=== PATIENT | female | born 1950 | race Caucasian/White ===

== ENCOUNTER → 2016-06-16 | Outpatient (CLI) | payer BC | LOC: MW.MRI 17:21 | PROVIDERS: ATTEND Orthopaedic Surgery | DX: M17.11 Unilateral primary osteoarthritis, right knee (principal) | CPT/HCPCS: 73721-RT ==

== ENCOUNTER → 2016-06-30 | Outpatient (CLI) | payer BC ==
[2016-06-30 12:44] LABS: CHLORIDE,CL 103 mmol/L (98-110); SODIUM,NA 140 mmol/L (136-146)
--- NOTE | 2016-06-30 13:09 | CR ---
EXAMINATION: Two-view chest (PA and Lateral views). HISTORY: Preprocedural examination. FINDINGS: The trachea is midline. The cardiomediastinal silhouette is within normal limits. No pulmonary infil trates, effusions or pneumothorax. Bilateral shoulder hardware noted. Clips are noted within the upper abdomen. IMPRESSION: No acute cardiopulmonary process.
== END ==
LOC: MW.CHIM 11:52
PROVIDERS: ATTEND Internal Medicine
DX: Z01.818 Encounter for other preprocedural examination (principal)
CPT/HCPCS: 36415; 71020; 71020-26; 80048; 81001; 85025; 85610; 93005

== ENCOUNTER 2016-07-20 06:37 | Inpatient (IN) | payer BC, MEDICARE ==
[2016-07-20] MEDS: Lactated Ringers 1,000 ML IV SCH ×2 (06:18→20:29)
[~2016-07-20 06:37] MED LIST: Famotidine 20 MG/2 ML SDV IVPUSH SCH; Ketorolac 30 MG/ML SDV IVPUSH SCH; Ropivacaine 49.25 ML, Ketorolac 30 MG, EPINEPHrine 0.5 MG, cloNIDine 80 MCG in Sodium C... INJECT ONE; Scopolamine 1.5 MG Transdermal Patch TRDERM SCH; ceFAZolin 2 GM in Premix Bag 1 BAG IV SCH; oxyCODONE ER 20 MG TAB.ER PO SCH
--- NOTE | 2016-07-20 07:18 | PCM.PREANE ---
Preanesthetic Assessment - Anesthesia/Transfusion/Family Hx Anesthesia History: Prior Anesthesia Without Reaction Family History of Anesthesia Reaction: No Transfusion History: Prior Transfusion Without Reaction - Review of Systems General: No Symptoms Pulmonary: No Symptoms Cardiovascular: No Symptoms Gastrointestinal: No symptoms Neurological: No Symptoms Other: Reports: None - Physical Assessment NPO Status Date: 07/19/16 Height: 1.5 m Weight: 109.316 kg ASA Class: 3 Mental Status: Alert & Oriented x3 Airway Class: Mallampati = 2 Dentition: Reports: Broken Tooth/Teeth Lungs: Clear to auscultation, Normal respiratory effort Cardiovascular: Regular Rate, Regular Rhythm - Allergies Allergies/Adverse Reactions: Allergies Allergy/AdvReac Type Severity Reaction Status Date / Time gabapentin Allergy Swelling Verified 07/15/16 10:47 Pertussis Vaccines Allergy Cannot Verified 07/15/16 10:47 Remember - Anesthesia Plan Pre-Op Medication Ordered: Other (PO oxycodone, toradol, pepcid, and transderm scop in pre op holding per surgeons orders) - Acknowledgements Anesthesia Type Planned: General Anesthesia, Spinal Pt an Appropriate Candidate for the Planned Anesthesia: Yes Alternatives and Risks of Anesthesia Discussed w Pt/Guardian: Yes Pt/Guardian Understands and Agrees with Anesthesia Plan: Yes PreAnesthesia Questionnaire HEENT History: Reports: Other (See Below) Other HEENT History: wears reading glasses Cardiovascular History: Reports: Hypertension Gastrointestinal History: Reports: None Genitourinary History: Reports: None 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: Musculoskeletal History: Reports: Arthritis, Back Pain, Chronic Other Musculoskeletal History: degenerative joint disease Psychiatric History: Reports: Anxiety, Depression Endocrine/Metabolic History: Reports: Obesity/BMI 30+ Hematologic History: Reports: Blood Transfusion(s) - Past Surgical History Head Surgeries/Procedures: Reports: None HEENT Surgical History: Reports: Tonsillectomy GI Surgical History: Reports: Appendectomy, Bariatric Procedure Other GI Surgeries/Procedures: states had gastroc bypass surgery 40 yrs ago and shortly thereafter had reversal of her gastric bypass due to complications Female Surgical History: Reports: Hysterectomy Musculoskeletal Surgical History: Reports: Shoulder Surgery Other Musculoskeletal Surgeries/Procedures:: hx real shoulder surgery, hx foot surgery - SUBSTANCE USE Smoking Status *Q: Never Smoker Tobacco Use Within Last Twelve Months: No Days Per Week of Alcohol Use: 0 Recreational Drug Use History: No - HOME MEDS Home Medications: Home Meds FLUoxetine [PROzac] 20 mg PO DAILY 10/17/13 [History] Hydrochlorothiazide 25 mg PO DAILY 10/17/13 [History] amLODIPine Besylate [Amlodipine Besylate] 5 mg PO DAILY 10/17/13 [History] Naproxen Sodium [Aleve] 2 tab PO DAILY 01/14/15 [History] Celecoxib [CeleBREX] 200 mg PO DAILY 07/15/16 [History] Diclofenac Sodium [Voltaren 1% Gel] 1 applic TOP ASDIRECTED PRN 07/15/16 [ History] Hydrocodone/Acetaminophen [Hydrocodon-Acetaminoph 7.5-325] 1 tab PO ASDIRECTED PRN 07/15/16 [History] - CURRENT (IN HOUSE) MEDS Current Meds: Current Medications Famotidine (Pepcid) 40 mg IVPUSH ONARRIVE [facility] Last Admin: 07/20/16 06:17 Dose: 40 mg Lactated Ringer's (Ringers, Lactated) 1,000 mls @ 100 mls/hr IV ASDIRECTED [facility] Last Admin: 07/20/16 06:18 Dose: 100 mls/hr Cefazolin Sodium/Dextrose 2 gm (/ Premix) 50 mls @ 100 mls/hr IV ONCALL [facility] Ketorolac Tromethamine (Toradol) 30 mg IVPUSH ONARRIVE [facility] Last Admin: 07/20/16 06:15 Dose: 30 mg Oxycodone HCl (Oxycontin) 20 mg PO ONARRIVE [facility] Last Admin: 07/20/16 06:15 Dose: 20 mg Scopolamine (Transderm-Scop) 1.5 mg TRDERM ONARRIVE [facility] Last Admin: 07/20/16 06:14 Dose: 1.5 mg Tranexamic Acid (Cyklokapron) 4,000 mg IV SEECOMMENT [facility] Discontinued Medications Ropivacaine 49.25 ml/Ketorolac Tromethamine 30 mg/Epinephrine HCl 0.5 mg/ Clonidine HCl 80 mcg/ Sodium Chloride 100 mls @ 50 mls/min INJECT ONETIME ONE Stop: 07/20/16 06:01
[2016-07-20] MEDS ORDERED: Ondansetron 4 MG/2 ML SDV ONE (07:29)
[2016-07-20] MEDS ORDERED: Propofol 200 MG/20 ML SDV ONE (07:30)
[2016-07-20] MEDS ORDERED: fentaNYL 100 MCG/2 ML SDV ONE (07:30)
[2016-07-20] MEDS ORDERED: Midazolam 1 MG/ML 2 ML SDV ONE (07:30)
[2016-07-20] MEDS ORDERED: Acetaminophen 1,000 MG in Premix Bag 1 BAG IV ONE (08:00)
[2016-07-20] MEDS ORDERED: Phenylephrine/Normal Saline 100 MCG/ML 10 ML Syringe ONE (09:53)
[2016-07-20] MEDS ORDERED: Ondansetron 4 MG/2 ML SDV IV PRN (10:09)
[2016-07-20] MEDS ORDERED: Morphine 4 MG/ML Syringe IVPUSH PRN (10:10)
[2016-07-20] MEDS ORDERED: diphenhydrAMINE 25 MG Cap PO PRN (10:10)
[2016-07-20] MEDS ORDERED: Bisacodyl 10 MG Supp RECTAL PRN (10:10)
[2016-07-20] MEDS ORDERED: Aluminum Hydroxide/Magnesium Hydroxide/Simethicone Susp 30 ML Cup PO PRN (10:10)
--- NOTE | 2016-07-20 10:14 | PCM.OPNOTE ---
- General Post-Op/Procedure Note Date of Surgery/Procedure: 07/20/16 Operative Procedure(s): R TKA Post-Op Diagnosis: DJD R knee Anesthesia Technique: Moderate sedation, Spinal Primary Surgeon: Sugey Mera Workforce Development Assistant: Mary Beth Richey Workforce Development Assistant: Maty Chamberlain in mLs: 50 Condition: Good Free Text/Narrative:: tt=61 min #[id number]
[2016-07-20] MEDS: oxyCODONE 5 MG Tab PO PRN ×3 (11:19→22:29)
--- NOTE | 2016-07-20 13:08 | PCM.POSTAN ---
POST ANESTHESIA ASSESSMENT - MENTAL STATUS Mental Status: alert, oriented - RESPIRATORY Respiratory Status: respiratory rate WNL, airway patent, O2 saturation stable, supplemental oxygen (nasal canula) - CARDIOVASCULAR CV Status: pulse rate WNL, blood pressure stable - GASTROINTESTINAL GI Status: no symptoms - POST OP HYDRATION Hydration Status: adequate & stable
[2016-07-20] MEDS: Ketorolac 30 MG/ML SDV IVPUSH SCH ×2 (13:29→20:20)
[2016-07-20] MEDS: Acetaminophen 500 MG Tab PO SCH ×2 (13:29→20:18)
[2016-07-20] MEDS: ceFAZolin 2 GM in Premix Bag 1 BAG IV SCH ×2 (15:53→23:41)
--- NOTE | 2016-07-20 16:24 | CR ---
EXAMINATION: Right knee HISTORY: TKA COMPARISON: MRI dated 04/24/2016 TECHNIQUE: 2 views FINDINGS/IMPRESSION: Right total knee hardware is demonstrated in good position and alignment. Overl may operative soft tissue changes are noted.
[2016-07-20] MEDS ORDERED: ceFAZolin 2 GM in Premix Bag 1 BAG IV SCH (16:30)
--- NOTE | 2016-07-20 20:08 | OR ---
SURGEON: Sugey Mera MD DATE OF PROCEDURE: 07/20/2016 PREOPERATIVE DIAGNOSIS: Degenerative joint disease, right knee, tricompartmental. POSTOPERATIVE DIAGNOSIS: Degenerative joint disease, right knee, tricompartmental. PROCEDURE: Right total knee arthroplasty using patient-specific instrumentation. ASSISTANTS: Mary Beth Richey PA-C and Maty Chamberlain PA-C. ANESTHESIA: Spinal with sedation. ESTIMATED BLOOD LOSS: 50 mL. TOURNIQUET TIME: 61 minutes. COMPLICATIONS: None. DVT PROPHYLAXIS: PAS boot and ALEXX hose to the nonoperative leg. IMPLANTS USED: Kell Persona femoral component size 5 (LPS), tibial component size D, 12-mm all-polyethylene articular surface, and 29-mm all-polyethylene patella. INTRAOPERATIVE FINDINGS: Showed evidence of tricompartmental degenerative changes with grade 4 chondromalacia. Osteophyte formation was also noted. No significant synovitis was found. 1 g of tranexamic acid was given prior to inflation of the tourniquet. An additional gram was given IV upon deflation of the tourniquet. We did apply 1 g topically to the wound as the cement was allowed to harden. BRIEF HISTORY: Valerie Vazquez is a 66-year-old female, who has had complaint of progressive right knee pain. She had failed conservative treatment. Due to her lack of response to conservative treatment, I did recommend surgical intervention. The risks and goals of procedure were discussed with the patient and were documented preoperatively. She agreed to proceed. DESCRIPTION OF PROCEDURE: The patient was properly identified and brought to the operating room. The patient was then transferred from the operating room cart and placed on the operating table in a supine position. Anesthesia was administered by the anesthesia staff. After adequate anesthesia was obtained, a well-padded tourniquet was applied to the surgical lower extremity. The lower extremity was then prepped in standard fashion using ChloraPrep solution. It was then sterilely draped. A time-out was performed to ensure correct site and procedure. Preoperative antibiotics were given. The surgical site had been marked preoperatively. An Esmarch was used to exsanguinate the right lower extremity and the tourniquet was inflated. An incision was made over the anterior aspect of the knee. The subcutaneous tissues were dissected down to the level of the fascia. A medial parapatellar approach to the knee was made. A portion of the infrapatellar fat pad was then excised. The distal femur was then exposed. The femoral patient-specific cutting guide was then placed. Pins were also placed. The distal femoral cutting block was placed and the distal femoral cut was made. Instrumentation was then removed. Both Whitesides' line and the epicondylar axis were then marked with electrocautery. The 4-in-1 cutting block was placed. This was placed in a slightly externally rotated position, which corresponded well with the previously drawn lines. The cutting guide was then pinned into position. An Waylon wing guide was used to check the depth of resection of our anterior condylar cut and it was felt that no notching would occur. The anterior condylar cut was then made followed by the posterior condylar cut. Both the posterior chamfer and anterior chamfer cuts were then made. The cutting block was then removed along with the excess bony remnants. We then turned our attention to the tibia. The anterior cruciate ligament and posterior cruciate ligament were released and a posterior cruciate ligament retractor was placed to allow the tibia to be pulled anteriorly. The tibial patient-specific guide was then placed on the proximal tibia. This fit anatomically. The pins were then placed. The proximal tibia cutting guide was then placed and screwed into position. The proximal tibial resection was then made with care being taken to protect the patellar tendon. The bony resection was then removed. The remainder of the medial and lateral meniscus were then excised. Care was taken to protect the popliteus tendon. The tibia was then sized to the appropriate size. The distal femur was then elevated. The posterior capsule was stripped off the distal femur both medially and laterally. The posterior capsule along with the medial and lateral gutters were then injected with a standard mixture consisting of clonidine, epinephrine, Morphine, Toradol, and Ropivacaine, unless any allergies were found preoperatively. The femoral component was then placed onto the distal femur in a slightly lateral position. This fit the femur well. A box cut was then made without difficulty. This was then removed. The tibial trial along with the polyethylene liner was then placed. The knee came easily into full extension and was stable to varus and valgus stressing both in full extension and flexion. Any additional releases were performed at this time. We then returned our attention to the patella. The patella was everted and towel clamps were used to hold the patella in position. It was resected to a 15 millimeter thickness. It was then sized to the appropriate size. It was prepared in the usual fashion after placing the predetermined size clamps. This was placed in a slightly superior and medial position. The clamp was then removed. The patellar trial button was placed. The knee was taken through a range of motion using the no-touch technique. The patella tracked centrally. A drop amy was then placed to check alignment. All instruments were then removed from the knee. The tibial sizer was then placed on the tibia. The tibia was prepared in the usual fashion using the reamer and broach. This was then removed. All bony surfaces were copiously irrigated with Pulsavac solution. They were then suctioned dry. Cement was prepared on the back table in the usual manner. Once it was prepared, the bone ends were again suctioned dry. The tibia was cemented into place first. This was malleted into position. Excess cement was then cleared. The femur was then placed in a similar manner. We placed the polyethylene trial into place and the knee was brought into full extension. An axial load was placed while keeping the knee in full extension. The patella button was also cemented into position and the clamp was used to hold this in place as the cement was allowed to cure. After we had adequate curing of the cement, the knee was again taken through a range of motion. The size of the polyethylene was then determined. The polyethylene trial was then removed. The tibial tray was suctioned to make sure there was no remaining soft tissue or cement. Excess cement was cleared from around the edges of the prosthesis as well. The tourniquet was then deflated. We were able to observe for any excess bleeding and none was noted. Electrocautery was used to maintain hemostasis. The retractors were again placed and the predetermined polyethylene was then placed. This was locked into position without difficulty. The knee was again taken through a range of motion with no change from the prior exam. The wound was then copiously irrigated with Pulsavac solution. The fascial layer was closed with Number One Vicryl. The subcutaneous tissues were closed with 2-0 Vicryl. The skin was closed with sachin. Xeroform gauze was placed over the wound and a bulky dressing was applied. The patient was then awakened from anesthesia and transferred back to the operating room cart. They were brought to the recovery room in stable condition. All needle and sponge counts were correct. OZIEL / DARNELL /[id number]
[2016-07-20] MEDS: Docusate Sodium 100 MG Cap PO SCH (20:19)
[2016-07-20] MEDS: oxyCODONE ER 20 MG TAB.ER PO SCH (21:12)
[2016-07-21] MEDS: Acetaminophen 500 MG Tab PO SCH ×4 (02:01→20:57)
[2016-07-21] MEDS: Ketorolac 30 MG/ML SDV IVPUSH SCH (02:02)
[2016-07-21] MEDS: oxyCODONE 5 MG Tab PO PRN ×4 (06:05→22:14)
[2016-07-21] MEDS: Lactated Ringers 1,000 ML IV SCH (07:03)
[2016-07-21] MEDS ORDERED: Sodium Chloride 0.9% 10 ML Syringe FLUSH PRN (07:56)
[2016-07-21] MEDS ORDERED: Sodium Chloride 0.9% 2.5 ML Syringe FLUSH PRN (07:56)
--- NOTE | 2016-07-21 08:13 | PCM48HPAN ---
Post Anesthesia Note - EVALUATION WITHIN 48HRS OF ANESTHETIC Vital Signs in Normal Range: Yes Patient Participated in Evaluation: Yes Respiratory Function Stable: Yes Airway Patent: Yes Cardiovascular Function Stable: Yes Hydration Status Stable: Yes Pain Control Satisfactory: Yes (states had alot of pain though the night) Nausea and Vomiting Control Satisfactory: Yes Mental Status Recovered: Yes
--- NOTE | 2016-07-21 08:28 | PCM.SURGPN ---
- General Info Date of Service: 07/21/16 Date of Surgery/Procedure: 07/20/16 POD#: 1 Functional Status: Reports: pain controlled, tolerating diet, ambulating, urinating - Review of Systems General: Reports: No Symptoms Pulmonary: Reports: no symptoms Cardiovascular: Reports: No Symptoms Gastrointestinal: Reports: No symptoms Genitourinary: Reports: no symptoms Musculoskeletal: Reports: leg pain, joint pain, joint swelling Neurological: Reports: No Symptoms Psychiatric: Reports: no symptoms - Patient Data Vitals - most recent: Last Vital Signs Temp 37.1 C 07/21/16 07:52 Pulse 84 07/21/16 07:52 Resp 20 07/21/16 07:52 BP 184/79 H 07/21/16 07:52 Pulse Ox 93 L 07/21/16 07:52 Weight - most recent: 109.31 kg I&O - last 24 hours: Intake & Output 07/20/16 07/21/16 07/21/16 22:59 06:59 14:59 Intake Total 1800 1050 1000 Output Total 300 1850 Balance 1500 -800 1000 Lab Results last 24 hrs: Laboratory Results - last 24 hr 07/20/16 07/21/16 Range/Units 07:34 04:39 Hgb 11.6 L (12.0-16.0) g/dL Hct 35.8 L (36.0-46.0) % Blood Type O POSITIVE Antibody Screen NEGATIVE Med Orders - Current: Current Medications Acetaminophen (Tylenol Extra Strength) 1,000 mg PO Q6H [facility] Last Admin: 07/21/16 02:01 Dose: 1,000 mg Al Hydroxide/Mg Hydroxide (Mag-Al Plus) 30 ml PO Q4H PRN PRN Reason: indigestion Aspirin (Aspirin) 325 mg PO BID [facility] Bisacodyl (Dulcolax) 10 mg RECTAL DAILY PRN PRN Reason: Constipation Celecoxib (Celebrex) 200 mg PO DAILY [facility] Diphenhydramine HCl (Benadryl) 25 - 50 mg PO Q6H PRN PRN Reason: Itching Last Admin: 07/21/16 07:36 Dose: 25 mg Docusate Sodium (Colace) 100 mg PO BID [facility] Last Admin: 07/20/16 20:19 Dose: 100 mg Lactated Ringer's (Ringers, Lactated) 1,000 mls @ 100 mls/hr IV ASDIRECTED [facility] Last Admin: 07/21/16 07:03 Dose: 100 mls/hr Morphine Sulfate (Morphine) 1 - 3 mg IVPUSH Q3H PRN PRN Reason: Pain Last Admin: 07/21/16 07:31 Dose: 2 mg Ondansetron HCl (Zofran) 4 mg IV Q6HR PRN PRN Reason: NAUSEA/VOMITING Oxycodone HCl (Oxycodone) 5 - 10 mg PO Q4H PRN PRN Reason: Pain Last Admin: 07/21/16 06:05 Dose: 10 mg Oxycodone HCl (Oxycontin) 20 mg PO Q12HR [facility] Last Admin: 07/20/16 21:12 Dose: 20 mg Scopolamine (Transderm-Scop) 1.5 mg TRDERM ONARRIVE [facility] Last Admin: 07/20/16 06:14 Dose: 1.5 mg Sodium Chloride (Saline Flush) 10 ml FLUSH ASDIRECTED PRN PRN Reason: Keep Vein Open Sodium Chloride (Saline Flush) 2.5 ml FLUSH ASDIRECTED PRN PRN Reason: Keep Vein Open Discontinued Medications Famotidine (Pepcid) 40 mg IVPUSH ONARRIVE [facility] Last Admin: 07/20/16 06:17 Dose: 40 mg Fentanyl (Sublimaze) Confirm Administered Dose 100 mcg .ROUTE .STK-MED ONE Stop: 07/20/16 07:31 Ropivacaine 49.25 ml/Ketorolac Tromethamine 30 mg/Epinephrine HCl 0.5 mg/ Clonidine HCl 80 mcg/ Sodium Chloride 100 mls @ 50 mls/min INJECT ONETIME ONE Stop: 07/20/16 06:01 Last Admin: 07/20/16 17:14 Dose: Not Given Cefazolin Sodium/Dextrose 2 gm (/ Premix) 50 mls @ 100 mls/hr IV ONCALL [facility] Acetaminophen 1,000 mg/ Premix 100 mls @ 400 mls/hr IV NOW ONE Stop: 07/20/16 08:14 Last Admin: 07/20/16 08:04 Dose: 400 mls/hr Cefazolin Sodium/Dextrose 2 gm (/ Premix) 50 mls @ 100 mls/hr IV Q8HR [facility] Stop: 07/20/16 22:29 Cefazolin Sodium/Dextrose 2 gm (/ Premix) 50 mls @ 100 mls/hr IV Q8H [facility] Stop: 07/21/16 00:59 Last Admin: 07/20/16 23:41 Dose: 100 mls/hr Ketorolac Tromethamine (Toradol) 30 mg IVPUSH ONARRIVE [facility] Last Admin: 07/20/16 06:15 Dose: 30 mg Ketorolac Tromethamine (Toradol) 30 mg IVPUSH Q6H [facility] Stop: 07/21/16 02:01 Last Admin: 07/21/16 02:02 Dose: 30 mg Midazolam HCl (Versed 1 Mg/Ml) Confirm Administered Dose 2 mg .ROUTE .STK-MED ONE Stop: 07/20/16 07:31 Ondansetron HCl (Zofran) Confirm Administered Dose 4 mg .ROUTE .STK-MED ONE Stop: 07/20/16 07:30 Oxycodone HCl (Oxycontin) 20 mg PO ONARRIVE [facility] Last Admin: 07/20/16 06:15 Dose: 20 mg Phenylephrine HCl (Phenylephrine In Ns 100 Mcg/Ml) Confirm Administered Dose 1 mg .ROUTE .STK-MED ONE Stop: 07/20/16 09:54 Propofol (Diprivan 20 Ml) Confirm Administered Dose 800 mg .ROUTE .STK-MED ONE Stop: 07/20/16 07:31 Tranexamic Acid (Cyklokapron) 4,000 mg IV SEECOMMENT [facility] Tranexamic Acid (Cyklokapron) Confirm Administered Dose 3,000 mg .ROUTE .STK- MED ONE Stop: 07/20/16 07:26 Tranexamic Acid (Cyklokapron) Confirm Administered Dose 1,000 mg .ROUTE .STK- MED ONE Stop: 07/20/16 07:29 - Exam Wound/Incisions: dressing dry and intact General: alert, oriented HEENT: Pupils equal, Pupils reactive Lungs: Normal respiratory effort Cardiovascular: Regular Rate Extremities: other (Right anterior tibialis, extensor hallucis longus and gastrocnemius strength +5/5 bilaterally. Sensation intact. Dorsalis pedis and posterior tibial pulses +2 bilaterally. ) Neurological: no new focal deficit Psy/Mental Status: alert, normal affect, normal mood - Problem List Review Problem List Initiated/Reviewed/Updated: Yes - My Orders Last 24 Hours: Active Orders 24 hr Category Date Time Status Patient Status [ADT] Routine ADT 07/20/16 12:19 Active Transfer Patient (Change bed) [ADT] Routine ADT 07/20/16 12:19 Ordered Activity as Tolerated [RC] .Routine Care 07/20/16 10:09 Active Intake and Output [RC] Q12H Care 07/20/16 10:09 Active Neurovascular Check [RC] Q2HR Care 07/20/16 10:09 Active Notify Provider Vital Signs [RC] ASDIRECTED Care 07/20/16 10:09 Active RT Incentive Spirometry [RC] ASDIRECTED Care 07/20/16 10:09 Active Remove Puente Catheter [Urinary Catheter Removal] [RC] Care 07/21/16 07:56 Active Per Unit Routine Vital Signs [RC] Q4H Care 07/20/16 10:09 Active PT Evaluation and Treatment [CONS] Routine Cons 07/20/16 10:09 Active HEMOGLOBIN/HEMATOCRIT,HH [HEME] DAILY Lab 07/22/16 07:00 Ordered HEMOGLOBIN/HEMATOCRIT,HH [HEME] DAILY Lab 07/23/16 07:00 Ordered Acetaminophen [Tylenol Extra Strength] Med 07/20/16 14:00 Active 1,000 mg PO Q6H Alum Hydrox/Mag Hydrox/Simeth [Mag-Al Plus] Med 07/20/16 10:10 Active 30 ml PO Q4H PRN Aspirin Med 07/21/16 09:00 Active 325 mg PO BID Bisacodyl [Dulcolax] Med 07/20/16 10:10 Active 10 mg RECTAL DAILY PRN Celecoxib [CeleBREX] Med 07/21/16 09:00 Active 200 mg PO DAILY Docusate Sodium [Colace] Med 07/20/16 21:00 Active 100 mg PO BID Morphine Med 07/20/16 10:10 Active 1 - 3 mg IVPUSH Q3H PRN Ondansetron [Zofran] Med 07/20/16 10:09 Active 4 mg IV Q6HR PRN Sodium Chloride 0.9% [Saline Flush] Med 07/21/16 07:56 Active 10 ml FLUSH ASDIRECTED PRN Sodium Chloride 0.9% [Saline Flush] Med 07/21/16 07:56 Active 2.5 ml FLUSH ASDIRECTED PRN diphenhydrAMINE [Benadryl] Med 07/20/16 10:10 Active 25 - 50 mg PO Q6H PRN oxyCODONE Med 07/20/16 10:10 Active 5 - 10 mg PO Q4H PRN oxyCODONE ER [OxyCONTIN] Med 07/20/16 21:00 Active 20 mg PO Q12HR Convert IV to Saline Lock [OM.PC] Routine Oth 07/21/16 07:56 Ordered Ice Therapy [OM.PC] Routine Oth 07/20/16 10:09 Ordered Medication Orders Acetaminophen (Tylenol Extra Strength) 1,000 mg PO Q6H [facility] Last Admin: 07/21/16 02:01 Dose: 1,000 mg Admin: 07/20/16 20:18 Dose: 1,000 mg Admin: 07/20/16 13:29 Dose: 1,000 mg Al Hydroxide/Mg Hydroxide (Mag-Al Plus) 30 ml PO Q4H PRN PRN Reason: indigestion Aspirin (Aspirin) 325 mg PO BID [facility] Bisacodyl (Dulcolax) 10 mg RECTAL DAILY PRN PRN Reason: Constipation Celecoxib (Celebrex) 200 mg PO DAILY [facility] Diphenhydramine HCl (Benadryl) 25 - 50 mg PO Q6H PRN PRN Reason: Itching Last Admin: 07/21/16 07:36 Dose: 25 mg Docusate Sodium (Colace) 100 mg PO BID [facility] Last Admin: 07/20/16 20:19 Dose: 100 mg Lactated Ringer's (Ringers, Lactated) 1,000 mls @ 100 mls/hr IV ASDIRECTED [facility] Last Admin: 07/21/16 07:03 Dose: 100 mls/hr Infusion: 07/21/16 06:29 Dose: 100 mls/hr Admin: 07/20/16 20:29 Dose: 100 mls/hr Infusion: 07/20/16 16:18 Dose: 100 mls/hr Admin: 07/20/16 06:18 Dose: 100 mls/hr Morphine Sulfate (Morphine) 1 - 3 mg IVPUSH Q3H PRN PRN Reason: Pain Last Admin: 07/21/16 07:31 Dose: 2 mg Ondansetron HCl (Zofran) 4 mg IV Q6HR PRN PRN Reason: NAUSEA/VOMITING Oxycodone HCl (Oxycodone) 5 - 10 mg PO Q4H PRN PRN Reason: Pain Last Admin: 07/21/16 06:05 Dose: 10 mg Admin: 07/20/16 22:29 Dose: 10 mg Admin: 07/20/16 15:53 Dose: 10 mg Admin: 07/20/16 11:19 Dose: 10 mg Oxycodone HCl (Oxycontin) 20 mg PO Q12HR [facility] Last Admin: 07/20/16 21:12 Dose: 20 mg Scopolamine (Transderm-Scop) 1.5 mg TRDERM ONARRIVE [facility] Last Admin: 07/20/16 06:14 Dose: 1.5 mg Sodium Chloride (Saline Flush) 10 ml FLUSH ASDIRECTED PRN PRN Reason: Keep Vein Open Sodium Chloride (Saline Flush) 2.5 ml FLUSH ASDIRECTED PRN PRN Reason: Keep Vein Open - Assessment Assessment (Free Text/Narrative):: Patient up to chair this AM Tolerating diet Pain controlled overnight VSS Hgb 11.6 UO 2520 mL - Plan Plan (Free Text/Narrative):: Continue pain management Ambulated with PT today Puente out, IV to saline lock Encourage PO fluid intake Start Aspirin 325 mg BID for DVT prophylaxis Possible D/C home tomorrow if pain controlled
[2016-07-21] MEDS: Docusate Sodium 100 MG Cap PO SCH ×2 (08:37→20:57)
[2016-07-21] MEDS: Celecoxib 100 MG Cap PO SCH (08:37)
[2016-07-21] MEDS: Aspirin 325 MG Tab PO SCH ×2 (08:37→20:57)
[2016-07-21] MEDS: oxyCODONE ER 20 MG TAB.ER PO SCH ×2 (08:38→20:57)
[2016-07-21] MEDS: amLODIPine 5 MG Tab PO SCH (12:21)
[2016-07-21] MEDS: FLUoxetine 20 MG Cap PO SCH (12:21)
[2016-07-21] MEDS: Hydrochlorothiazide 25 MG Tab PO SCH (12:22)
--- NOTE | 2016-07-21 18:03 | PCM.SN ---
- Free Text/Narrative Note: Patient seen and examined. Agree with JULIETA Richey note. Patient sitting up in chair. Pain controlled with po meds. Was up with PT--progressing slowly. VSS, afeb Dressing dry/intact. NVI. 1. continue PT 2. ASA, SCD, mobilization for DVT prophylaxis 3. continue current pain management 4. possible discharge home tomorrow afternoon
[2016-07-22] MEDS: Acetaminophen 500 MG Tab PO SCH ×4 (02:13→20:24)
[2016-07-22] MEDS: oxyCODONE 5 MG Tab PO PRN ×3 (02:33→14:19)
--- NOTE | 2016-07-22 08:05 | PCM.SURGPN ---
- General Info Date of Service: 07/22/16 Date of Surgery/Procedure: 07/20/16 POD#: 2 Functional Status: Reports: pain controlled, tolerating diet, ambulating, urinating - Review of Systems General: Reports: No Symptoms Pulmonary: Reports: no symptoms Cardiovascular: Reports: No Symptoms Gastrointestinal: Reports: No symptoms Genitourinary: Reports: no symptoms Musculoskeletal: Reports: leg pain, joint pain, joint swelling Neurological: Reports: No Symptoms Psychiatric: Reports: no symptoms - Patient Data Vitals - most recent: Last Vital Signs Temp 36.7 C 07/22/16 04:00 Pulse 68 07/22/16 04:00 Resp 16 07/22/16 04:00 BP 132/61 07/22/16 04:00 Pulse Ox 93 L 07/22/16 04:00 Weight - most recent: 109.31 kg I&O - last 24 hours: Intake & Output 07/21/16 07/22/16 07/22/16 22:59 06:59 14:59 Intake Total 1170 650 Output Total 1300 1600 Balance -130 -950 Lab Results last 24 hrs: Laboratory Results - last 24 hr 07/22/16 Range/Units 05:01 Hgb 10.9 L (12.0-16.0) g/dL Hct 33.2 L (36.0-46.0) % Med Orders - Current: Current Medications Acetaminophen (Tylenol Extra Strength) 1,000 mg PO Q6H [facility] Last Admin: 07/22/16 02:13 Dose: 1,000 mg Al Hydroxide/Mg Hydroxide (Mag-Al Plus) 30 ml PO Q4H PRN PRN Reason: indigestion Amlodipine Besylate (Norvasc) 5 mg PO DAILY [facility] Last Admin: 07/21/16 12:21 Dose: 5 mg Aspirin (Aspirin) 325 mg PO BID [facility] Last Admin: 07/21/16 20:57 Dose: 325 mg Bisacodyl (Dulcolax) 10 mg RECTAL DAILY PRN PRN Reason: Constipation Celecoxib (Celebrex) 200 mg PO DAILY [facility] Last Admin: 07/21/16 08:37 Dose: 200 mg Diphenhydramine HCl (Benadryl) 25 - 50 mg PO Q6H PRN PRN Reason: Itching Last Admin: 07/21/16 07:36 Dose: 25 mg Docusate Sodium (Colace) 100 mg PO BID [facility] Last Admin: 07/21/16 20:57 Dose: 100 mg Fluoxetine HCl (Prozac) 20 mg PO DAILY [facility] Last Admin: 07/21/16 12:21 Dose: 20 mg Hydrochlorothiazide (Hydrochlorothiazide) 25 mg PO DAILY [facility] Last Admin: 07/21/16 12:22 Dose: Not Given Morphine Sulfate (Morphine) 1 - 3 mg IVPUSH Q3H PRN PRN Reason: Pain Last Admin: 07/21/16 07:31 Dose: 2 mg Ondansetron HCl (Zofran) 4 mg IV Q6HR PRN PRN Reason: NAUSEA/VOMITING Oxycodone HCl (Oxycodone) 5 - 10 mg PO Q4H PRN PRN Reason: Pain Last Admin: 07/22/16 07:16 Dose: 10 mg Oxycodone HCl (Oxycontin) 20 mg PO Q12HR [facility] Last Admin: 07/21/16 20:57 Dose: 20 mg Scopolamine (Transderm-Scop) 1.5 mg TRDERM ONARRIVE [facility] Last Admin: 07/20/16 06:14 Dose: 1.5 mg Sodium Chloride (Saline Flush) 10 ml FLUSH ASDIRECTED PRN PRN Reason: Keep Vein Open Sodium Chloride (Saline Flush) 2.5 ml FLUSH ASDIRECTED PRN PRN Reason: Keep Vein Open Discontinued Medications Famotidine (Pepcid) 40 mg IVPUSH ONARRIVE [facility] Last Admin: 07/20/16 06:17 Dose: 40 mg Fentanyl (Sublimaze) Confirm Administered Dose 100 mcg .ROUTE .STK-MED ONE Stop: 07/20/16 07:31 Ropivacaine 49.25 ml/Ketorolac Tromethamine 30 mg/Epinephrine HCl 0.5 mg/ Clonidine HCl 80 mcg/ Sodium Chloride 100 mls @ 50 mls/min INJECT ONETIME ONE Stop: 07/20/16 06:01 Last Admin: 07/20/16 17:14 Dose: Not Given Lactated Ringer's (Ringers, Lactated) 1,000 mls @ 100 mls/hr IV ASDIRECTED [facility] Last Admin: 07/21/16 07:03 Dose: 100 mls/hr Cefazolin Sodium/Dextrose 2 gm (/ Premix) 50 mls @ 100 mls/hr IV ONCALL [facility] Acetaminophen 1,000 mg/ Premix 100 mls @ 400 mls/hr IV NOW ONE Stop: 07/20/16 08:14 Last Admin: 07/20/16 08:04 Dose: 400 mls/hr Cefazolin Sodium/Dextrose 2 gm (/ Premix) 50 mls @ 100 mls/hr IV Q8HR [facility] Stop: 07/20/16 22:29 Cefazolin Sodium/Dextrose 2 gm (/ Premix) 50 mls @ 100 mls/hr IV Q8H [facility] Stop: 07/21/16 00:59 Last Admin: 07/20/16 23:41 Dose: 100 mls/hr Ketorolac Tromethamine (Toradol) 30 mg IVPUSH ONARRIVE [facility] Last Admin: 07/20/16 06:15 Dose: 30 mg Ketorolac Tromethamine (Toradol) 30 mg IVPUSH Q6H [facility] Stop: 07/21/16 02:01 Last Admin: 07/21/16 02:02 Dose: 30 mg Midazolam HCl (Versed 1 Mg/Ml) Confirm Administered Dose 2 mg .ROUTE .STK-MED ONE Stop: 07/20/16 07:31 Ondansetron HCl (Zofran) Confirm Administered Dose 4 mg .ROUTE .STK-MED ONE Stop: 07/20/16 07:30 Oxycodone HCl (Oxycontin) 20 mg PO ONARRIVE [facility] Last Admin: 07/20/16 06:15 Dose: 20 mg Phenylephrine HCl (Phenylephrine In Ns 100 Mcg/Ml) Confirm Administered Dose 1 mg .ROUTE .STK-MED ONE Stop: 07/20/16 09:54 Propofol (Diprivan 20 Ml) Confirm Administered Dose 800 mg .ROUTE .STK-MED ONE Stop: 07/20/16 07:31 Tranexamic Acid (Cyklokapron) 4,000 mg IV SEECOMMENT [facility] Tranexamic Acid (Cyklokapron) Confirm Administered Dose 3,000 mg .ROUTE .STK- MED ONE Stop: 07/20/16 07:26 Tranexamic Acid (Cyklokapron) Confirm Administered Dose 1,000 mg .ROUTE .STK- MED ONE Stop: 07/20/16 07:29 - Exam Wound/Incisions: dressing dry and intact (Dressing changed today.) General: alert, oriented HEENT: Pupils equal, Pupils reactive Neck: trachea midline Lungs: Normal respiratory effort Cardiovascular: Regular Rate Extremities: other (Right anterior tibialis, extensor hallucis longus and gastrocnemius strength +5/5 bilaterally. Sensation intact. Dorsalis pedis and posterior tibial pulses +2 bilaterally. ) Neurological: no new focal deficit Psy/Mental Status: alert, normal affect, normal mood - Problem List Review Problem List Initiated/Reviewed/Updated: Yes - My Orders Last 24 Hours: Active Orders 24 hr Category Date Time Status HEMOGLOBIN/HEMATOCRIT,HH [HEME] DAILY Lab 07/23/16 07:00 Ordered Aspirin Med 07/21/16 09:00 Active 325 mg PO BID Celecoxib [CeleBREX] Med 07/21/16 09:00 Active 200 mg PO DAILY FLUoxetine [PROzac] Med 07/21/16 12:15 Active 20 mg PO DAILY Hydrochlorothiazide Med 07/21/16 12:15 Active 25 mg PO DAILY Sodium Chloride 0.9% [Saline Flush] Med 07/21/16 07:56 Active 10 ml FLUSH ASDIRECTED PRN Sodium Chloride 0.9% [Saline Flush] Med 07/21/16 07:56 Active 2.5 ml FLUSH ASDIRECTED PRN amLODIPine [Norvasc] Med 07/21/16 12:15 Active 5 mg PO DAILY Convert IV to Saline Lock [OM.PC] Routine Oth 07/21/16 07:56 Ordered Medication Orders Acetaminophen (Tylenol Extra Strength) 1,000 mg PO Q6H [facility] Last Admin: 07/22/16 02:13 Dose: 1,000 mg Admin: 07/21/16 20:57 Dose: 1,000 mg Admin: 07/21/16 13:27 Dose: 1,000 mg Admin: 07/21/16 08:37 Dose: 1,000 mg Admin: 07/21/16 02:01 Dose: 1,000 mg Admin: 07/20/16 20:18 Dose: 1,000 mg Admin: 07/20/16 13:29 Dose: 1,000 mg Al Hydroxide/Mg Hydroxide (Mag-Al Plus) 30 ml PO Q4H PRN PRN Reason: indigestion Amlodipine Besylate (Norvasc) 5 mg PO DAILY [facility] Last Admin: 07/21/16 12:21 Dose: 5 mg Aspirin (Aspirin) 325 mg PO BID [facility] Last Admin: 07/21/16 20:57 Dose: 325 mg Admin: 07/21/16 08:37 Dose: 325 mg Bisacodyl (Dulcolax) 10 mg RECTAL DAILY PRN PRN Reason: Constipation Celecoxib (Celebrex) 200 mg PO DAILY [facility] Last Admin: 07/21/16 08:37 Dose: 200 mg Diphenhydramine HCl (Benadryl) 25 - 50 mg PO Q6H PRN PRN Reason: Itching Last Admin: 07/21/16 07:36 Dose: 25 mg Docusate Sodium (Colace) 100 mg PO BID [facility] Last Admin: 07/21/16 20:57 Dose: 100 mg Admin: 07/21/16 08:37 Dose: 100 mg Admin: 07/20/16 20:19 Dose: 100 mg Fluoxetine HCl (Prozac) 20 mg PO DAILY [facility] Last Admin: 07/21/16 12:21 Dose: 20 mg Hydrochlorothiazide (Hydrochlorothiazide) 25 mg PO DAILY [facility] Last Admin: 07/21/16 12:22 Dose: Not Given Morphine Sulfate (Morphine) 1 - 3 mg IVPUSH Q3H PRN PRN Reason: Pain Last Admin: 07/21/16 07:31 Dose: 2 mg Ondansetron HCl (Zofran) 4 mg IV Q6HR PRN PRN Reason: NAUSEA/VOMITING Oxycodone HCl (Oxycodone) 5 - 10 mg PO Q4H PRN PRN Reason: Pain Last Admin: 07/22/16 07:16 Dose: 10 mg Admin: 07/22/16 02:33 Dose: 10 mg Admin: 07/21/16 22:14 Dose: 10 mg Admin: 07/21/16 16:19 Dose: 10 mg Admin: 07/21/16 10:48 Dose: 10 mg Admin: 07/21/16 06:05 Dose: 10 mg Admin: 07/20/16 22:29 Dose: 10 mg Admin: 07/20/16 15:53 Dose: 10 mg Admin: 07/20/16 11:19 Dose: 10 mg Oxycodone HCl (Oxycontin) 20 mg PO Q12HR [facility] Last Admin: 07/21/16 20:57 Dose: 20 mg Admin: 07/21/16 08:38 Dose: 20 mg Admin: 07/20/16 21:12 Dose: 20 mg Scopolamine (Transderm-Scop) 1.5 mg TRCONSTANZA ONARRIVE [facility] Last Admin: 07/20/16 06:14 Dose: 1.5 mg Sodium Chloride (Saline Flush) 10 ml FLUSH ASDIRECTED PRN PRN Reason: Keep Vein Open Sodium Chloride (Saline Flush) 2.5 ml FLUSH ASDIRECTED PRN PRN Reason: Keep Vein Open - Assessment Assessment (Free Text/Narrative):: Patient up to chair this AM Pain controlled Tolerating diet No new complaints today VSS Hgb 10.9 UO 2900 mL - Plan Plan (Free Text/Narrative):: Continue pain management Continue PT, encourage ambulation Dressing was changed today Possible D/C home this afternoon
[2016-07-22] MEDS: Aspirin 325 MG Tab PO SCH ×2 (08:07→20:24)
[2016-07-22] MEDS: FLUoxetine 20 MG Cap PO SCH (08:07)
[2016-07-22] MEDS: Celecoxib 100 MG Cap PO SCH (08:08)
[2016-07-22] MEDS: Hydrochlorothiazide 25 MG Tab PO SCH (08:08)
[2016-07-22] MEDS: amLODIPine 5 MG Tab PO SCH (08:08)
[2016-07-22] MEDS: Docusate Sodium 100 MG Cap PO SCH ×2 (08:08→20:24)
[2016-07-22] MEDS: oxyCODONE ER 20 MG TAB.ER PO SCH ×2 (08:09→20:24)
--- NOTE | 2016-07-22 13:39 | PCM.SN ---
- Free Text/Narrative Note: Patient seen and examined. Agree with Kaiden note. Patient still with some pain when up. Tolerating diet. Slowly progressing with PT. No other complaints. Hgb stable, VSS. Dressing dry/intact. NVI. will plan to keep additional day for pain management and mobilization. Encouraged OOB today. Will plan to discharge home tomrrow after PT. Patient agrees with plan.
[2016-07-23] MEDS: Acetaminophen 500 MG Tab PO SCH ×2 (02:51→08:04)
--- NOTE | 2016-07-23 07:36 | PCM.SURGPN ---
- General Info Date of Service: 07/23/16 Date of Surgery/Procedure: 07/20/16 POD#: 3 Functional Status: Reports: pain controlled, tolerating diet, ambulating, urinating - Review of Systems General: Reports: No Symptoms Pulmonary: Reports: no symptoms Cardiovascular: Reports: No Symptoms Gastrointestinal: Reports: No symptoms Genitourinary: Reports: no symptoms Musculoskeletal: Reports: leg pain, joint pain, joint swelling Neurological: Reports: No Symptoms Psychiatric: Reports: no symptoms - Patient Data Vitals - most recent: Last Vital Signs Temp 36.2 C 07/23/16 04:00 Pulse 80 07/23/16 04:00 Resp 18 07/23/16 04:00 BP 158/70 H 07/23/16 04:00 Pulse Ox 93 L 07/23/16 04:00 Weight - most recent: 109.31 kg I&O - last 24 hours: Intake & Output 07/22/16 07/23/16 07/23/16 22:59 06:59 14:59 Intake Total 1000 600 Output Total 1550 3000 Balance -550 -2400 Lab Results last 24 hrs: Laboratory Results - last 24 hr 07/23/16 Range/Units 04:40 Hgb 10.9 L (12.0-16.0) g/dL Hct 33.3 L (36.0-46.0) % Med Orders - Current: Current Medications Acetaminophen (Tylenol Extra Strength) 1,000 mg PO Q6H [facility] Last Admin: 07/23/16 02:51 Dose: 1,000 mg Al Hydroxide/Mg Hydroxide (Mag-Al Plus) 30 ml PO Q4H PRN PRN Reason: indigestion Amlodipine Besylate (Norvasc) 5 mg PO DAILY [facility] Last Admin: 07/22/16 08:08 Dose: 5 mg Aspirin (Aspirin) 325 mg PO BID [facility] Last Admin: 07/22/16 20:24 Dose: 325 mg Bisacodyl (Dulcolax) 10 mg RECTAL DAILY PRN PRN Reason: Constipation Celecoxib (Celebrex) 200 mg PO DAILY [facility] Last Admin: 07/22/16 08:08 Dose: 200 mg Diphenhydramine HCl (Benadryl) 25 - 50 mg PO Q6H PRN PRN Reason: Itching Last Admin: 07/21/16 07:36 Dose: 25 mg Docusate Sodium (Colace) 100 mg PO BID [facility] Last Admin: 07/22/16 20:24 Dose: 100 mg Fluoxetine HCl (Prozac) 20 mg PO DAILY [facility] Last Admin: 07/22/16 08:07 Dose: 20 mg Hydrochlorothiazide (Hydrochlorothiazide) 25 mg PO DAILY [facility] Last Admin: 07/22/16 08:08 Dose: 25 mg Morphine Sulfate (Morphine) 1 - 3 mg IVPUSH Q3H PRN PRN Reason: Pain Last Admin: 07/21/16 07:31 Dose: 2 mg Ondansetron HCl (Zofran) 4 mg IV Q6HR PRN PRN Reason: NAUSEA/VOMITING Oxycodone HCl (Oxycodone) 5 - 10 mg PO Q4H PRN PRN Reason: Pain Last Admin: 07/22/16 14:19 Dose: 10 mg Oxycodone HCl (Oxycontin) 20 mg PO Q12HR [facility] Last Admin: 07/22/16 20:24 Dose: 20 mg Scopolamine (Transderm-Scop) 1.5 mg TRDERM ONARRIVE [facility] Last Admin: 07/20/16 06:14 Dose: 1.5 mg Sodium Chloride (Saline Flush) 10 ml FLUSH ASDIRECTED PRN PRN Reason: Keep Vein Open Sodium Chloride (Saline Flush) 2.5 ml FLUSH ASDIRECTED PRN PRN Reason: Keep Vein Open Discontinued Medications Famotidine (Pepcid) 40 mg IVPUSH ONARRIVE [facility] Last Admin: 07/20/16 06:17 Dose: 40 mg Fentanyl (Sublimaze) Confirm Administered Dose 100 mcg .ROUTE .STK-MED ONE Stop: 07/20/16 07:31 Ropivacaine 49.25 ml/Ketorolac Tromethamine 30 mg/Epinephrine HCl 0.5 mg/ Clonidine HCl 80 mcg/ Sodium Chloride 100 mls @ 50 mls/min INJECT ONETIME ONE Stop: 07/20/16 06:01 Last Admin: 07/20/16 17:14 Dose: Not Given Lactated Ringer's (Ringers, Lactated) 1,000 mls @ 100 mls/hr IV ASDIRECTED [facility] Last Admin: 07/21/16 07:03 Dose: 100 mls/hr Cefazolin Sodium/Dextrose 2 gm (/ Premix) 50 mls @ 100 mls/hr IV ONCALL [facility] Acetaminophen 1,000 mg/ Premix 100 mls @ 400 mls/hr IV NOW ONE Stop: 07/20/16 08:14 Last Admin: 07/20/16 08:04 Dose: 400 mls/hr Cefazolin Sodium/Dextrose 2 gm (/ Premix) 50 mls @ 100 mls/hr IV Q8HR [facility] Stop: 07/20/16 22:29 Cefazolin Sodium/Dextrose 2 gm (/ Premix) 50 mls @ 100 mls/hr IV Q8H [facility] Stop: 07/21/16 00:59 Last Admin: 07/20/16 23:41 Dose: 100 mls/hr Ketorolac Tromethamine (Toradol) 30 mg IVPUSH ONARRIVE [facility] Last Admin: 07/20/16 06:15 Dose: 30 mg Ketorolac Tromethamine (Toradol) 30 mg IVPUSH Q6H [facility] Stop: 07/21/16 02:01 Last Admin: 07/21/16 02:02 Dose: 30 mg Midazolam HCl (Versed 1 Mg/Ml) Confirm Administered Dose 2 mg .ROUTE .STK-MED ONE Stop: 07/20/16 07:31 Ondansetron HCl (Zofran) Confirm Administered Dose 4 mg .ROUTE .STK-MED ONE Stop: 07/20/16 07:30 Oxycodone HCl (Oxycontin) 20 mg PO ONARRIVE [facility] Last Admin: 07/20/16 06:15 Dose: 20 mg Phenylephrine HCl (Phenylephrine In Ns 100 Mcg/Ml) Confirm Administered Dose 1 mg .ROUTE .STK-MED ONE Stop: 07/20/16 09:54 Propofol (Diprivan 20 Ml) Confirm Administered Dose 800 mg .ROUTE .STK-MED ONE Stop: 07/20/16 07:31 Tranexamic Acid (Cyklokapron) 4,000 mg IV SEECOMMENT [facility] Tranexamic Acid (Cyklokapron) Confirm Administered Dose 3,000 mg .ROUTE .STK- MED ONE Stop: 07/20/16 07:26 Tranexamic Acid (Cyklokapron) Confirm Administered Dose 1,000 mg .ROUTE .STK- MED ONE Stop: 07/20/16 07:29 - Exam Wound/Incisions: dressing dry and intact General: alert, oriented HEENT: Pupils equal, Pupils reactive Neck: trachea midline Lungs: Normal respiratory effort Cardiovascular: Regular Rate Extremities: other (Right anterior tibialis, extensor hallucis longus and gastrocnemius strength +5/5 bilaterally. Sensation intact. Dorsalis pedis and posterior tibial pulses +2 bilaterally. ) Neurological: no new focal deficit Psy/Mental Status: alert, normal affect, normal mood - Problem List Review Problem List Initiated/Reviewed/Updated: Yes - My Orders Last 24 Hours: Medication Orders Acetaminophen (Tylenol Extra Strength) 1,000 mg PO Q6H [facility] Last Admin: 07/23/16 02:51 Dose: 1,000 mg Admin: 07/22/16 20:24 Dose: 1,000 mg Admin: 07/22/16 13:06 Dose: 1,000 mg Admin: 07/22/16 08:06 Dose: 1,000 mg Admin: 07/22/16 02:13 Dose: 1,000 mg Admin: 07/21/16 20:57 Dose: 1,000 mg Admin: 07/21/16 13:27 Dose: 1,000 mg Admin: 07/21/16 08:37 Dose: 1,000 mg Admin: 07/21/16 02:01 Dose: 1,000 mg Admin: 07/20/16 20:18 Dose: 1,000 mg Admin: 07/20/16 13:29 Dose: 1,000 mg Al Hydroxide/Mg Hydroxide (Mag-Al Plus) 30 ml PO Q4H PRN PRN Reason: indigestion Amlodipine Besylate (Norvasc) 5 mg PO DAILY [facility] Last Admin: 07/22/16 08:08 Dose: 5 mg Admin: 07/21/16 12:21 Dose: 5 mg Aspirin (Aspirin) 325 mg PO BID [facility] Last Admin: 07/22/16 20:24 Dose: 325 mg Admin: 07/22/16 08:07 Dose: 325 mg Admin: 07/21/16 20:57 Dose: 325 mg Admin: 07/21/16 08:37 Dose: 325 mg Bisacodyl (Dulcolax) 10 mg RECTAL DAILY PRN PRN Reason: Constipation Celecoxib (Celebrex) 200 mg PO DAILY [facility] Last Admin: 07/22/16 08:08 Dose: 200 mg Admin: 07/21/16 08:37 Dose: 200 mg Diphenhydramine HCl (Benadryl) 25 - 50 mg PO Q6H PRN PRN Reason: Itching Last Admin: 07/21/16 07:36 Dose: 25 mg Docusate Sodium (Colace) 100 mg PO BID [facility] Last Admin: 07/22/16 20:24 Dose: 100 mg Admin: 07/22/16 08:08 Dose: 100 mg Admin: 07/21/16 20:57 Dose: 100 mg Admin: 07/21/16 08:37 Dose: 100 mg Admin: 07/20/16 20:19 Dose: 100 mg Fluoxetine HCl (Prozac) 20 mg PO DAILY [facility] Last Admin: 07/22/16 08:07 Dose: 20 mg Admin: 07/21/16 12:21 Dose: 20 mg Hydrochlorothiazide (Hydrochlorothiazide) 25 mg PO DAILY [facility] Last Admin: 07/22/16 08:08 Dose: 25 mg Admin: 07/21/16 12:22 Dose: Not Given Morphine Sulfate (Morphine) 1 - 3 mg IVPUSH Q3H PRN PRN Reason: Pain Last Admin: 07/21/16 07:31 Dose: 2 mg Ondansetron HCl (Zofran) 4 mg IV Q6HR PRN PRN Reason: NAUSEA/VOMITING Oxycodone HCl (Oxycodone) 5 - 10 mg PO Q4H PRN PRN Reason: Pain Last Admin: 07/22/16 14:19 Dose: 10 mg Admin: 07/22/16 07:16 Dose: 10 mg Admin: 07/22/16 02:33 Dose: 10 mg Admin: 07/21/16 22:14 Dose: 10 mg Admin: 07/21/16 16:19 Dose: 10 mg Admin: 07/21/16 10:48 Dose: 10 mg Admin: 07/21/16 06:05 Dose: 10 mg Admin: 07/20/16 22:29 Dose: 10 mg Admin: 07/20/16 15:53 Dose: 10 mg Admin: 07/20/16 11:19 Dose: 10 mg Oxycodone HCl (Oxycontin) 20 mg PO Q12HR [facility] Last Admin: 07/22/16 20:24 Dose: 20 mg Admin: 07/22/16 08:09 Dose: 20 mg Admin: 07/21/16 20:57 Dose: 20 mg Admin: 07/21/16 08:38 Dose: 20 mg Admin: 07/20/16 21:12 Dose: 20 mg Scopolamine (Transderm-Scop) 1.5 mg TRDERM ONARRIVE [facility] Last Admin: 07/20/16 06:14 Dose: 1.5 mg Sodium Chloride (Saline Flush) 10 ml FLUSH ASDIRECTED PRN PRN Reason: Keep Vein Open Sodium Chloride (Saline Flush) 2.5 ml FLUSH ASDIRECTED PRN PRN Reason: Keep Vein Open - Assessment Assessment (Free Text/Narrative):: Patient resting in bed this AM Pain controlled Tolerating diet Urinating Hgb 10.9 VSS UO 4550 mL No complaints today - Plan Plan (Free Text/Narrative):: Continue pain management via PO pain medication this AM Continue PT this AM D/C home today
[2016-07-23] MEDS: Docusate Sodium 100 MG Cap PO SCH (08:04)
[2016-07-23] MEDS: Aspirin 325 MG Tab PO SCH (08:04)
[2016-07-23] MEDS: oxyCODONE ER 20 MG TAB.ER PO SCH (08:05)
[2016-07-23] MEDS: Hydrochlorothiazide 25 MG Tab PO SCH ×2 (08:05→08:10)
[2016-07-23] MEDS: FLUoxetine 20 MG Cap PO SCH (08:05)
[2016-07-23] MEDS: amLODIPine 5 MG Tab PO SCH (08:06)
[2016-07-23] MEDS: Celecoxib 100 MG Cap PO SCH (08:06)
[2016-07-23 12:04] VITALS: BP 129/70
--- NOTE | 2016-07-23 14:33 | PCM.SN ---
[id number] medications and instructions. Dictation #: [id number]
--- NOTE | 2016-07-24 03:55 | DISCH ---
DATE OF ADMISSION: 07/20/2016 DATE OF DISCHARGE: 07/23/2016 PRIMARY CARE PHYSICIAN: Nicholas Padilla DO ADMITTING DIAGNOSIS: 1. Right knee degenerative joint disease, tricompartmental. OTHER MEDICAL DIAGNOSES: 1. Depression. 2. Hypertension. DISCHARGE DIAGNOSES: 1. Status post right total knee arthroplasty. 2. Depression. 3. Hypertension. BRIEF HISTORY: Patient is a 66-year-old female, who has had complete progressive right knee pain. She had failed conservative treatment. Due to her lack of response to conservative treatment, surgical intervention was considered at this time. OPERATION: Right total knee arthroplasty. HOSPITAL COURSE: During the patient's hospital stay, pain was controlled via IV and PO pain medications. The patient did receive two doses of Ancef postoperatively for 24 hours of antibiotic coverage. The patient was followed by Physical Therapy during her hospital stay. Upon discharge, patient's vital signs were stable. Hemoglobin on day of discharge was 10.9. Aspirin 325 mg PO BID was started on postop day 1 for DVT prophylaxis. Pain is currently controlled with oral pain medications only. The patient is tolerating oral intake and ambulating with wheeled walker. She feels comfortable with discharge home today. DISCHARGE MEDICATIONS: 1. Aspirin 325 mg 2. Colace 100 mg 3. Celebrex 200 mg 4. Tylenol 500 mg 5. OxyContin 20 mg 6. Oxycodone 5 mg. DISCHARGE INSTRUCTIONS: 1. Patient will follow up in the clinic on July 30, 2016. This appointment has been made for the patient. 2. Patient will attend outpatient physical therapy 2 to 3 times per week for 4-6 weeks. 3. Polar care to the right lower extremity. 4. ALEXX hose to the right lower extremity. On in the morning and off in the evenings. For complete medication reconciliation and discharge instructions, please refer to the patient's EHR. If patient has questions or concerns prior to followup appointment, they should call the clinic. GILBERTO PATRICK /[id number] MTDD
== END 2016-07-23 12:49 | disposition home or self-care (01) | DRG 302 ==
LOC: MW.MS 06:37
PROVIDERS: ADMIT Orthopaedic Surgery; ATTEND Orthopaedic Surgery
PROC: 0SRC0J9 Replacement of Right Knee Joint with Synthetic Substitute, Cemented, Open Approach (ICD-10-PCS; principal; 2016-07-20)
DX: M17.11 Unilateral primary osteoarthritis, right knee (principal); I10 Essential (primary) hypertension; F32.9 Major depressive disorder, single episode, unspecified; M94.261 Chondromalacia, right knee; M25.761 Osteophyte, right knee
CPT/HCPCS: 01402; 36415; 73560-26-RT; 73560-RT; 85014; 85018; 86850; 86900; 86901; 88305; 88311; 97110-GP; 97116-GP; 97161-GP; A9270-GY; C1713; C1776; J0171; J0690; J0735; J1885; J2250; J2270; J2405; J2704; J2795; J3010; J7050; J7120

== ENCOUNTER 2017-03-03 08:17 | Observation (INO) | payer BC, MEDICARE ==
[~2017-03-03 08:17] MED LIST changes: +Bupivacaine 25%/EPINEPHrine/PF 0 ML ONE; -Famotidine 20 MG/2 ML SDV IVPUSH SCH; -Ketorolac 30 MG/ML SDV IVPUSH SCH; -Ropivacaine 49.25 ML, Ketorolac 30 MG, EPINEPHrine 0.5 MG, cloNIDine 80 MCG in Sodium C... INJECT ONE; -Scopolamine 1.5 MG Transdermal Patch TRDERM SCH; -ceFAZolin 2 GM in Premix Bag 1 BAG IV SCH; -oxyCODONE ER 20 MG TAB.ER PO SCH
[2017-03-03] MEDS ORDERED: fentaNYL 100 MCG/2 ML SDV IVPUSH PRN (08:23)
[2017-03-03] MEDS ORDERED: Propofol 200 MG/20 ML SDV ONE (08:24)
[2017-03-03] MEDS ORDERED: Octyl 2-Cyanoacrylate 1 Tube ONE (08:46)
[2017-03-03] MEDS ORDERED: Bupivacaine 25%/EPINEPHrine/PF 30 ML ONE (08:46)
[2017-03-03] MEDS: Lactated Ringers 1,000 ML IV SCH ×2 (08:48→14:30)
[2017-03-03] MEDS ORDERED: ceFAZolin 2 GM in Premix Bag 1 BAG IV ONE (09:00)
[2017-03-03] MEDS ORDERED: Bupivacaine 0.25%/EPINEPHrine 1:200,000 10 ML SDV INJECT ONE (09:00)
[2017-03-03] MEDS ORDERED: Rocuronium 10 MG/ML 10 ML Syringe ONE (09:10)
[2017-03-03] MEDS ORDERED: Midazolam 1 MG/ML 2 ML SDV ONE (09:10)
[2017-03-03] MEDS ORDERED: Neostigmine Methylsulfate 1 MG/ML 5 ML Syringe ONE (09:10)
[2017-03-03] MEDS ORDERED: Lidocaine 2% 5 ML SDV ONE (09:10)
[2017-03-03] MEDS ORDERED: Ondansetron 4 MG/2 ML SDV ONE (09:10)
[2017-03-03] MEDS ORDERED: fentaNYL 250 MCG/5 ML SDV ONE (09:10)
[2017-03-03] MEDS ORDERED: ceFAZolin 1 GM Vial ONE (09:16)
[2017-03-03] MEDS ORDERED: Sodium Chloride 0.9% 20 ML ONE (09:16)
--- NOTE | 2017-03-03 09:18 | PCM.PREANE ---
Preanesthetic Assessment - Anesthesia/Transfusion/Family Hx Anesthesia History: Prior Anesthesia Without Reaction Family History of Anesthesia Reaction: No Transfusion History: Prior Transfusion Without Reaction Intubation History: Unknown - Review of Systems General: No Symptoms Pulmonary: No Symptoms Cardiovascular: No Symptoms Gastrointestinal: No Symptoms Neurological: No Symptoms Other: Reports: None - Physical Assessment O2 Sat by Pulse Oximetry: 94 Respiratory Rate: 16 Vital Signs: Last Vital Signs Temp 36.7 C 03/03/17 08:47 Pulse 81 03/03/17 08:47 Resp 16 03/03/17 08:47 BP 156/86 H 03/03/17 08:47 Pulse Ox 94 L 03/03/17 08:47 Height: 1.5 m Weight: 97.522 kg ASA Class: 3 Mental Status: Alert & Oriented x3 Airway Class: Mallampati = 2 Dentition: Reports: Normal Dentition, Broken Tooth/Teeth (bonded front upper teeth x2) Thyro-Mental Finger Breadths: 2 Mouth Opening Finger Breadths: 2 ROM/Head Extension: Limited/Partial Lungs: Clear to Auscultation, Normal Respiratory Effort Cardiovascular: Regular Rate, Regular Rhythm - Allergies Allergies/Adverse Reactions: Allergies Allergy/AdvReac Type Severity Reaction Status Date / Time gabapentin Allergy Swelling Verified 02/25/17 16:35 Pertussis Vaccines Allergy Cannot Verified 02/25/17 16:35 Remember - Blood Blood Available: No - Anesthesia Plan Pre-Op Medication Ordered: None - Acknowledgements Anesthesia Type Planned: General Anesthesia Pt an Appropriate Candidate for the Planned Anesthesia: Yes Alternatives and Risks of Anesthesia Discussed w Pt/Guardian: Yes Pt/Guardian Understands and Agrees with Anesthesia Plan: Yes PreAnesthesia Questionnaire HEENT History: Reports: Other (See Below) Other HEENT History: uses reading glasses Cardiovascular History: Reports: Hypertension Gastrointestinal History: Reports: None Genitourinary History: Reports: None Musculoskeletal History: Reports: Arthritis, Back Pain, Chronic, Fracture Other Musculoskeletal History: hx of fx foot Psychiatric History: Reports: Anxiety, Depression Endocrine/Metabolic History: Reports: Obesity/BMI 30+, Other (See Below) ( elevated fasting glucose) Hematologic History: Reports: Blood Transfusion(s) - Past Surgical History Head Surgeries/Procedures: Reports: None HEENT Surgical History: Reports: Tonsillectomy GI Surgical History: Reports: Appendectomy, Bariatric Procedure, Other (See Below) Other GI Surgeries/Procedures: reversal of Gastric Bypass Female Surgical History: Reports: Hysterectomy Musculoskeletal Surgical History: Reports: Knee Replacement, Shoulder Surgery, Other (See Below) Other Musculoskeletal Surgeries/Procedures:: bilateral shoulder arthroplasty, right ECLIA, bunionectomy left foot- hardware in all - SUBSTANCE USE Smoking Status *Q: Never Smoker Tobacco Use Within Last Twelve Months: No Second Hand Smoke Exposure: No Days Per Week of Alcohol Use: 0 Recreational Drug Use History: No - HOME MEDS Home Medications: Home Meds FLUoxetine [PROzac] 20 mg PO DAILY 10/17/13 [History] Hydrochlorothiazide 25 mg PO DAILY 10/17/13 [History] amLODIPine Besylate [Amlodipine Besylate] 5 mg PO DAILY 10/17/13 [History] Naproxen Sodium [Aleve] 440 mg PO QAM 02/25/17 [History] - CURRENT (IN HOUSE) MEDS Current Meds: Current Medications Hydrocodone Bitart/Acetaminophen ([place] 325-5 Mg) 2 tab PO Q4H PRN PRN Reason: Pain Cephalexin (Keflex) 500 mg PO Q6HR [facility] Diphenhydramine HCl (Benadryl) 25 mg PO Q4H PRN PRN Reason: Itching Fentanyl (Sublimaze) 50 mcg IVPUSH Q5M PRN PRN Reason: Pain (severe 7-10) Stop: 03/04/17 08:23 Cefazolin Sodium/Dextrose 2 gm (/ Premix) 50 mls @ 100 mls/hr IV ONETIME ONE Stop: 03/03/17 09:29 Lactated Ringer's (Ringers, Lactated) 1,000 mls @ 125 mls/hr IV ASDIRECTED [facility] Last Admin: 03/03/17 08:48 Dose: 125 mls/hr Morphine Sulfate (Morphine) 1 mg IVPUSH Q2H [facility] Ondansetron HCl (Zofran Odt) 4 mg PO Q6H PRN PRN Reason: Nausea/Vomiting Ondansetron HCl (Zofran) 4 mg IVPUSH Q6H PRN PRN Reason: Nausea/Vomiting Discontinued Medications Bupivacaine HCl/Epinephrine Bitart (Marcaine 0.25%/Epinephrine 1:200,000) 30 ml INJECT ONETIME ONE Stop: 03/03/17 09:01 Fentanyl (Sublimaze) Confirm Administered Dose 250 mcg .ROUTE .STK-MED ONE Stop: 03/03/17 09:11 Glycopyrrolate () Confirm Administered Dose 1 mg .ROUTE .[facility]-MED ONE Stop: 03/03/17 09:11 Bupivacaine HCl/Epinephrine Bitart (Sensorc Mpf 0.25%-Epi 1:[id number]) Confirm Administered Dose 30 mls @ as directed .ROUTE .[facility]-MED ONE Stop: 03/03/17 07:22 Bupivacaine HCl/Epinephrine Bitart (Sensorc Mpf 0.25%-Epi 1:[id number]) Confirm Administered Dose 30 mls @ as directed .ROUTE .[facility]-MED ONE Stop: 03/03/17 08:47 Lidocaine (Xylocaine-Mpf 2%) Confirm Administered Dose 5 ml .ROUTE .[facility]-MED ONE Stop: 03/03/17 09:11 Midazolam HCl (Versed 1 Mg/Ml) Confirm Administered Dose 2 mg .ROUTE .[facility]-MED ONE Stop: 03/03/17 09:11 Neostigmine Methylsulfate (Neostigmine) Confirm Administered Dose 5 mg .ROUTE .[facility]-MED ONE Stop: 03/03/17 09:11 Octyl Cyanoacrylate (Dermabond Advance) Confirm Administered Dose 1 applic .ROUTE .[facility]-MED ONE Stop: 03/03/17 08:47 Ondansetron HCl (Zofran) Confirm Administered Dose 4 mg .ROUTE .[facility]-MED ONE Stop: 03/03/17 09:11 Propofol (Diprivan 20 Ml) Confirm Administered Dose 200 mg .ROUTE .[facility]-MED ONE Stop: 03/03/17 08:25 Rocuronium [place] (Zemuron) Confirm Administered Dose 100 mg .ROUTE .[facility]-MED ONE Stop: 03/03/17 09:11
[2017-03-03] MEDS ORDERED: Succinylcholine/Normal Saline 200 MG/10 ML Syringe ONE (09:53)
[2017-03-03] MEDS ORDERED: fentaNYL 100 MCG/2 ML SDV ONE ×3 (10:28→11:26)
[2017-03-03] MEDS ORDERED: Dexamethasone 4 MG/ML 5 ML MDV ONE (11:25)
[2017-03-03] MEDS ORDERED: HYDROmorphone 2 MG/ML Syringe ONE (11:26)
[2017-03-03] MEDS ORDERED: Ondansetron 4 MG Tab.DIS PO PRN (12:44)
[2017-03-03] MEDS ORDERED: Ondansetron 4 MG/2 ML SDV IVPUSH PRN (12:44)
[2017-03-03] MEDS ORDERED: diphenhydrAMINE 25 MG Cap PO PRN (12:44)
--- NOTE | 2017-03-03 13:41 | PCM.OPNOTE ---
- General Post-Op/Procedure Note Date of Surgery/Procedure: 03/03/17 Operative Procedure(s): panniculectomy Pre Op Diagnosis: abdominal pannus interfering with daily activities Post-Op Diagnosis: Same Anesthesia Technique: General ET Tube, Local, MAC Primary Surgeon: Lea Grace Assessment Coordinator: Bee Villanueva Complications: None Condition: Good
--- NOTE | 2017-03-03 13:56 | PCM.POSTAN ---
POST ANESTHESIA ASSESSMENT - MENTAL STATUS Mental Status: Alert, Oriented - RESPIRATORY Respiratory Status: Respiratory Rate WNL, Airway Patent, O2 Saturation Stable - CARDIOVASCULAR CV Status: Pulse Rate WNL, Blood Pressure Stable - GASTROINTESTINAL GI Status: No Symptoms - POST OP HYDRATION Hydration Status: Adequate & Stable
[2017-03-03] MEDS: Morphine 2 MG/ML Syringe IVPUSH SCH (14:33)
[2017-03-03] MEDS ORDERED: Morphine 2 MG/ML Syringe IVPUSH PRN (14:52)
[2017-03-03] MEDS: Cephalexin 500 MG Cap PO SCH ×3 (15:35→23:41)
[2017-03-03] MEDS: Acetaminophen/HYDROcodone 325-5 MG Tab PO PRN ×2 (17:12→23:40)
[2017-03-04] MEDS: Cephalexin 500 MG Cap PO SCH ×3 (07:12→17:49)
--- NOTE | 2017-03-04 07:40 | PCM48HPAN ---
Post Anesthesia Note - EVALUATION WITHIN 48HRS OF ANESTHETIC Vital Signs in Normal Range: Yes Patient Participated in Evaluation: Yes Respiratory Function Stable: Yes Airway Patent: Yes Cardiovascular Function Stable: Yes Hydration Status Stable: Yes Pain Control Satisfactory: Yes Nausea and Vomiting Control Satisfactory: Yes Mental Status Recovered: Yes - COMMENTS/OBSERVATIONS Free Text/Narrative:: Pt doing well this AM with no complaints of pain or nausea overnight. No anesthesia complications.
[2017-03-04] MEDS: Acetaminophen/HYDROcodone 325-5 MG Tab PO PRN ×2 (08:16→18:40)
--- NOTE | 2017-03-04 17:37 | PCM.PN ---
- General Info Date of Service: 03/04/17 Admission Dx/Problem (Free Text): pod 1 s/p panniculectomy Subjective Update: still needing some assistance with adl's and wound cares. Would like to try to shower with help before heading home. Otherwise doing well. Functional Status: Reports: Pain Controlled, Tolerating Diet, Ambulating - Review of Systems General: Reports: No Symptoms HEENT: Reports: No Symptoms Pulmonary: Reports: Cough Skin: Reports: No Symptoms - Patient Data Vitals - Most Recent: Last Vital Signs Temp 97.6 F 03/04/17 12:00 Pulse 91 03/04/17 12:00 Resp 16 03/04/17 12:00 BP 102/49 L 03/04/17 12:00 Pulse Ox 94 L 03/04/17 12:00 Weight - Most Recent: 215 lb I&O - Last 24 Hours: Intake & Output 03/04/17 03/04/17 03/04/17 07:59 15:59 23:59 Intake Total 650 Output Total 1230 Balance -580 Med Orders - Current: Current Medications Hydrocodone Bitart/Acetaminophen ([place] 325-5 Mg) 2 tab PO Q4H PRN PRN Reason: Pain Last Admin: 03/04/17 08:16 Dose: 2 tab Cephalexin (Keflex) 500 mg PO Q6HR [facility] Last Admin: 03/04/17 11:41 Dose: 500 mg Diphenhydramine HCl (Benadryl) 25 mg PO Q4H PRN PRN Reason: Itching Last Admin: 03/03/17 15:35 Dose: 25 mg Lactated Ringer's (Ringers, Lactated) 1,000 mls @ 125 mls/hr IV ASDIRECTED [facility] Last Admin: 03/03/17 14:30 Dose: 125 mls/hr Morphine Sulfate (Morphine) 1 mg IVPUSH Q2H PRN PRN Reason: Pain Ondansetron HCl (Zofran Odt) 4 mg PO Q6H PRN PRN Reason: Nausea/Vomiting Ondansetron HCl (Zofran) 4 mg IVPUSH Q6H PRN PRN Reason: Nausea/Vomiting Discontinued Medications Bupivacaine HCl/Epinephrine Bitart (Marcaine 0.25%/Epinephrine 1:200,000) 30 ml INJECT ONETIME ONE Stop: 03/03/17 09:01 Last Admin: 03/03/17 21:52 Dose: Not Given Cefazolin Sodium (Ancef) Confirm Administered Dose 2 gm .ROUTE .STK-MED ONE Stop: 03/03/17 09:17 Dexamethasone (Dexamethasone) Confirm Administered Dose 20 mg .ROUTE .STK-MED ONE Stop: 03/03/17 11:26 Fentanyl (Sublimaze) 50 mcg IVPUSH Q5M PRN PRN Reason: Pain (severe 7-10) Stop: 03/04/17 08:23 Fentanyl (Sublimaze) Confirm Administered Dose 250 mcg .ROUTE .STK-MED ONE Stop: 03/03/17 09:11 Fentanyl (Sublimaze) Confirm Administered Dose 100 mcg .ROUTE .STK-MED ONE Stop: 03/03/17 10:29 Fentanyl (Sublimaze) Confirm Administered Dose 200 mcg .ROUTE .STK-MED ONE Stop: 03/03/17 10:50 Fentanyl (Sublimaze) Confirm Administered Dose 100 mcg .ROUTE .STK-MED ONE Stop: 03/03/17 11:27 Glycopyrrolate () Confirm Administered Dose 1 mg .ROUTE .STK-MED ONE Stop: 03/03/17 09:11 Hydromorphone HCl (Dilaudid) Confirm Administered Dose 2 mg .ROUTE .STK-MED ONE Stop: 03/03/17 11:27 Cefazolin Sodium/Dextrose 2 gm (/ Premix) 50 mls @ 100 mls/hr IV ONETIME ONE Stop: 03/03/17 09:29 Last Admin: 03/03/17 21:52 Dose: Not Given Bupivacaine HCl/Epinephrine Bitart (Sensorc Mpf 0.25%-Epi 1:[id number]) Confirm Administered Dose 30 mls @ as directed .ROUTE .STK-MED ONE Stop: 03/03/17 07:22 Bupivacaine HCl/Epinephrine Bitart (Sensorc Mpf 0.25%-Epi 1:938334) Confirm Administered Dose 30 mls @ as directed .ROUTE .STK-MED ONE Stop: 03/03/17 08:47 Sodium Chloride (Normal Saline) Confirm Administered Dose 20 mls @ as directed .ROUTE .STK-MED ONE Stop: 03/03/17 09:17 Lidocaine (Xylocaine-Mpf 2%) Confirm Administered Dose 5 ml .ROUTE .STK-MED ONE Stop: 03/03/17 09:11 Midazolam HCl (Versed 1 Mg/Ml) Confirm Administered Dose 2 mg .ROUTE .STK-MED ONE Stop: 03/03/17 09:11 Morphine Sulfate (Morphine) 1 mg IVPUSH Q2H [facility] Last Admin: 03/03/17 14:33 Dose: Not Given Neostigmine Methylsulfate (Neostigmine) Confirm Administered Dose 5 mg .ROUTE .STK-MED ONE Stop: 03/03/17 09:11 Octyl Cyanoacrylate (Dermabond Advance) Confirm Administered Dose 1 applic .ROUTE .STK-MED ONE Stop: 03/03/17 08:47 Ondansetron HCl (Zofran) Confirm Administered Dose 4 mg .ROUTE .STK-MED ONE Stop: 03/03/17 09:11 Propofol (Diprivan 20 Ml) Confirm Administered Dose 200 mg .ROUTE .STK-MED ONE Stop: 03/03/17 08:25 Rocuronium [place] (Zemuron) Confirm Administered Dose 100 mg .ROUTE .STK-MED ONE Stop: 03/03/17 09:11 Succinylcholine Chloride (Succinylcholine In Ns Pf) Confirm Administered Dose 200 mg .ROUTE .STK-MED ONE Stop: 03/03/17 09:54 - Exam General: Alert, Oriented HEENT: Pupils Equal Lungs: Normal Respiratory Effort Skin: Warm, Dry, Intact Wound/Incisions: Healing Well, Dressing Dry and Intact, Drainage (in BRAIN's) Neurological: No New Focal Deficit Psy/Mental Status: Alert, Normal Affect, Normal Mood - Problem List & Annotations (1) Status post panniculectomy SNOMED Code(s): 706511796, 039482920 Code(s): Z98.890 - OTHER SPECIFIED POSTPROCEDURAL STATES Status: Acute Current Visit: Yes - Problem List Review Problem List Initiated/Reviewed/Updated: Yes - Plan Plan:: healing well and will likely plan discharge tomorrow. healing nicely. No signs of infection and drains appropriate.
--- NOTE | 2017-03-04 18:22 | PCM48HPAN ---
Post Anesthesia Note - EVALUATION WITHIN 48HRS OF ANESTHETIC Vital Signs in Normal Range: Yes Patient Participated in Evaluation: Yes Respiratory Function Stable: Yes Airway Patent: Yes Cardiovascular Function Stable: Yes Hydration Status Stable: Yes Pain Control Satisfactory: Yes Nausea and Vomiting Control Satisfactory: Yes Mental Status Recovered: Yes
[2017-03-05] MEDS ORDERED: Cephalexin 500 MG Cap ONE ×2 (00:19→05:45)
[2017-03-05] MEDS: Cephalexin 500 MG Cap PO SCH ×2 (00:22→06:08)
[2017-03-05] MEDS ORDERED: Acetaminophen/HYDROcodone 325-5 MG Tab ONE (05:49)
[2017-03-05] MEDS: Acetaminophen/HYDROcodone 325-5 MG Tab PO PRN (05:51)
--- NOTE | 2017-03-05 10:54 | PCM.SN ---
- Free Text/Narrative Note: Doing very well today and ready for home. Wound cares discussed. Drain cares - strip q 2 while awake and drain q 4 - keep track of outputs. Follow up Wednesday at 130pm in clinic, call sooner with any issues or concerns. Keflex with drains in place and norco if needed for pain. Binder at all times.
[2017-03-05] MEDS ORDERED: Acetaminophen/HYDROcodone 325-5 MG Tab PO PRN (11:31)
[2017-03-05] MEDS ORDERED: diphenhydrAMINE 25 MG Cap PO PRN (11:32)
[2017-03-05] MEDS ORDERED: Ondansetron 4 MG/2 ML SDV IVPUSH PRN (11:32)
[2017-03-05] MEDS ORDERED: Ondansetron 4 MG Tab.DIS PO PRN (11:32)
[2017-03-05] MEDS ORDERED: Morphine 2 MG/ML Syringe IVPUSH PRN (11:33)
[2017-03-05] MEDS ORDERED: Cephalexin 500 MG Cap PO SCH (12:00)
[2017-03-05 13:02] VITALS: BP 112/59
--- NOTE | 2017-03-08 11:47 | OR ---
SURGEON: LEA GRACE MD DATE OF PROCEDURE: 03/03/2017 PREOPERATIVE DIAGNOSIS: Abdominal pannus interfering with daily activity. POSTOPERATIVE DIAGNOSIS: Abdominal pannus interfering with daily activity. PROCEDURE: Panniculectomy. PRIMARY SURGEON: Lea Grace M.D. MAINTENANCE SERVICE TECHNICIAN: ANGELIKA Oneil. REASON MAINTENANCE SERVICE TECHNICIAN WAS NECESSARY: Reason for sales assistant entertainment and media was assistance with prepping, draping, positioning, and closure. ANESTHESIA: General ET tube with local. INDICATIONS: Ms. Hoff is a 66-year-old female with significant abdominal excess skin. She has unfortunately failed conservative measures and had previous weight loss that was impressive, however, had significant complications from the gastric surgery and had to have reversal. She did gain the weight back and now is significantly compromised by the abdominal skin flap overhanging. Risks and benefits of removal of this were discussed with her in an unconventional pattern due to the open incisions from her gastric surgery. Risks and benefits were discussed including, but not limited to, bleeding, infection, damage to underlying or overlying structures, possible need for future interventions, and possible scarring. She also notes that she will not have an umbilicus after that surgery. PROCEDURE IN DETAIL: After informed consent was obtained and placed on the chart, the patient was brought to the operating theater and laid in the supine position. After adequate general anesthesia was obtained, the area was prepped and draped and a time-out was completed to confirm side and site. Once adequately confirmed, attention was then paid to dissection of the abdominal pannus starting at the superior longitudinal incision. This incision was incorporated and planned for to remove this, as it likely disrupts blood supply to the lower portion of the abdomen. Once adequately dissected here down to the abdominal wall, dissection was carried proximally and distally in order to elevate the skin flaps. Once adequately elevated, the umbilicus had been transected and tied off using 2-0 Ethibond suture in a [id number] fashion x2. No hernias were appreciated, and the lower skin flap was then redraped to meet the upper skin flap and the extra skin was transected. Once adequately removed and weighed at 15 pounds, meticulous hemostasis was obtained. The area was copiously irrigated. Attention was then paid to closure with 2-0 PDS plicating sutures from the abdominal wall to the superior skin flap. Two size 10 BRAIN drains were then placed superior and inferior of this and sutured in place laterally using 3-0 Prolene stitches in a horizontal mattress fashion. The pedicle was sutured in place and was attached to bulb suction. Attention was then paid to closure of the skin after it was stapled together in appropriate fashion. Once closure was undertaken, first 2-0 PDS StrataFix sutures were then used to close the fascial layer, 3-0 Monocryl StrataFix sutures were used to close the dermis, and a 4-0 running Monocryl stitch was used to close the skin. Once adequately closed, the wounds were dressed with Steri-Strips, fluffs, tape, and an abdominal binder. The patient tolerated the procedure well. All counts and needles were correct at the end of the case. FOLLOWUP INSTRUCTIONS: The patient will be maintained in the hospital for pain control and afterwards for close observation and assistance with ADLs. She will continue drain cares, and we will follow up with her tomorrow or sooner if any problems, questions, or concerns. VIKAS / DARNELL /[id number]
== END 2017-03-05 14:30 | disposition home or self-care (01) ==
LOC: MW.SDS 08:17 → MW.MS 13:37 → MW.SDS 03-04 17:37 → MW.MS 03-04 17:37
PROVIDERS: ADMIT Plastic Surgery; ATTEND Plastic Surgery
DX: E65 Localized adiposity (principal); M21.612 Bunion of left foot; M54.9 Dorsalgia, unspecified; G89.29 Other chronic pain; M17.11 Unilateral primary osteoarthritis, right knee; F32.9 Major depressive disorder, single episode, unspecified; I10 Essential (primary) hypertension; L30.4 Erythema intertrigo; M54.5 Low back pain; E66.01 Morbid (severe) obesity due to excess calories; M10.9 Gout, unspecified; R21 Rash and other nonspecific skin eruption; Z90.89 Acquired absence of other organs; Z90.710 Acquired absence of both cervix and uterus; Z68.41 Body mass index [BMI] 40.0-44.9, adult; Z98.890 Other specified postprocedural states; Z96.651 Presence of right artificial knee joint; Z88.1 Allergy status to other antibiotic agents; Z88.7 Allergy status to serum and vaccine; Z79.899 Other long term (current) drug therapy
CPT/HCPCS: 15830; 15847; 94660; A9270; G0378; J0690; J1100; J1170; J2250; J2405; J3010; J7120; 00802; J2704

== ENCOUNTER 2017-06-18 07:53 | Day surgery (SDC) | payer BC, MEDICARE ==
[~2017-06-18 07:53] MED LIST changes: -Bupivacaine 25%/EPINEPHrine/PF 0 ML ONE; +Bupivacaine 25%/EPINEPHrine/PF 30 ML ONE
[2017-06-18] MEDS ORDERED: Lactated Ringers 1,000 ML IV SCH (08:00)
[2017-06-18] MEDS ORDERED: Acetaminophen/HYDROcodone 325-5 MG Tab PO PRN (08:00)
[2017-06-18] MEDS ORDERED: ceFAZolin 2 GM in Premix Bag 1 BAG IV ONE (08:00)
[2017-06-18] MEDS ORDERED: Bupivacaine 0.25%/EPINEPHrine 1:200,000 10 ML SDV INJECT ONE (08:00)
--- NOTE | 2017-06-18 08:36 | PCM.PREANE ---
Preanesthetic Assessment - Anesthesia/Transfusion/Family Hx Anesthesia History: Prior Anesthesia Without Reaction Family History of Anesthesia Reaction: No Transfusion History: Prior Transfusion Without Reaction Intubation History: Unknown - Review of Systems General: No Symptoms Pulmonary: No Symptoms Cardiovascular: No Symptoms Gastrointestinal: No Symptoms Neurological: No Symptoms Other: Reports: None - Physical Assessment Height: 1.5 m Weight: 90.718 kg ASA Class: 3 Mental Status: Alert & Oriented x3 Airway Class: Mallampati = 2 Dentition: Reports: Normal Dentition Thyro-Mental Finger Breadths: 3 Mouth Opening Finger Breadths: 3 ROM/Head Extension: Full Lungs: Clear to Auscultation, Normal Respiratory Effort Cardiovascular: Regular Rate, Regular Rhythm - Allergies Allergies/Adverse Reactions: Allergies Allergy/AdvReac Type Severity Reaction Status Date / Time gabapentin Allergy Swelling Verified 06/16/17 08:02 Pertussis Vaccines Allergy Cannot Verified 06/16/17 08:02 Remember - Blood Blood Available: No - Anesthesia Plan Pre-Op Medication Ordered: None - Acknowledgements Anesthesia Type Planned: General Anesthesia Pt an Appropriate Candidate for the Planned Anesthesia: Yes Alternatives and Risks of Anesthesia Discussed w Pt/Guardian: Yes Pt/Guardian Understands and Agrees with Anesthesia Plan: Yes PreAnesthesia Questionnaire HEENT History: Reports: Other (See Below) Other HEENT History: uses reading glasses Cardiovascular History: Reports: Hypertension Gastrointestinal History: Reports: None Genitourinary History: Reports: None Musculoskeletal History: Reports: Arthritis, Back Pain, Chronic, Fracture Other Musculoskeletal History: hx of fx foot Psychiatric History: Reports: Anxiety, Depression Endocrine/Metabolic History: Reports: Obesity/BMI 30+ (BMI 40.4), Other (See Below) Hematologic History: Reports: Blood Transfusion(s) - Past Surgical History Head Surgeries/Procedures: Reports: None HEENT Surgical History: Reports: Tonsillectomy GI Surgical History: Reports: Appendectomy, Bariatric Procedure, Other (See Below) Other GI Surgeries/Procedures: reversal of Gastric Bypass Female Surgical History: Reports: Hysterectomy Musculoskeletal Surgical History: Reports: Knee Replacement, Shoulder Surgery, Other (See Below) Other Musculoskeletal Surgeries/Procedures:: bilateral shoulder arthroplasty, right CELIA, bunionectomy left foot- hardware in all Dermatological Surgical History: Reports: Plastic Surgical Reconstruction/ Repair (panicullectomy) - SUBSTANCE USE Smoking Status *Q: Never Smoker Tobacco Use Within Last Twelve Months: No Second Hand Smoke Exposure: No Days Per Week of Alcohol Use: 0 Recreational Drug Use History: No - HOME MEDS Home Medications: Home Meds FLUoxetine [PROzac] 20 mg PO DAILY 10/17/13 [History] Hydrochlorothiazide 25 mg PO DAILY 10/17/13 [History] amLODIPine Besylate [Amlodipine Besylate] 5 mg PO DAILY 10/17/13 [History] Naproxen Sodium [Aleve] 440 mg PO QAM 02/25/17 [History] Acetaminophen [Mapap] 2 tab PO Q6H PRN 06/16/17 [History] - CURRENT (IN HOUSE) MEDS Current Meds: Current Medications Hydrocodone Bitart/Acetaminophen ([place] 325-5 Mg) 1 tab PO Q4H PRN PRN Reason: Pain Lactated Ringer's (Ringers, Lactated) 1,000 mls @ 125 mls/hr IV ASDIRECTED [facility] Last Admin: 06/18/17 08:19 Dose: 125 mls/hr Discontinued Medications Bupivacaine HCl/Epinephrine Bitart (Marcaine 0.25%/Epinephrine 1:200,000) 10 ml INJECT ONETIME ONE Stop: 06/18/17 08:01 Cefazolin Sodium/Dextrose 2 gm (/ Premix) 50 mls @ 100 mls/hr IV ONETIME ONE Stop: 06/18/17 08:29 Bupivacaine HCl/Epinephrine Bitart (Sensorc Mpf 0.25%-Epi 1:[id number]) Confirm Administered Dose 30 mls @ as directed .ROUTE .STK-MED ONE Stop: 06/18/17 07:12
[2017-06-18] MEDS ORDERED: Lidocaine 2% 5 ML SDV ONE (09:07)
[2017-06-18] MEDS ORDERED: fentaNYL 250 MCG/5 ML SDV ONE (09:07)
[2017-06-18] MEDS ORDERED: Midazolam 1 MG/ML 2 ML SDV ONE (09:07)
[2017-06-18] MEDS ORDERED: Ondansetron 4 MG/2 ML SDV ONE (09:07)
[2017-06-18] MEDS ORDERED: Propofol 200 MG/20 ML SDV ONE (09:35)
[2017-06-18] MEDS ORDERED: ceFAZolin/Dextrose,Iso-Osmotic 2 GM/50 ML Duplex Bag IV ONE (09:45)
--- NOTE | 2017-06-18 11:07 | PCM.OPNOTE ---
- General Post-Op/Procedure Note Date of Surgery/Procedure: 06/18/17 Operative Procedure(s): Complex repair of abdomen 12.5 cm total length. Pre Op Diagnosis: wound dehiscence of abdomen Post-Op Diagnosis: Same Anesthesia Technique: General LMA, Local Primary Surgeon: Lea Grace Complications: None Condition: Good
[2017-06-18 12:22] VITALS: BP 102/58
--- NOTE | 2017-06-18 19:52 | OR ---
SURGEON: UBALDO FRAUSTO MD DATE OF PROCEDURE: 06/18/2017 PREOPERATIVE DIAGNOSIS: Wound dehiscence to the abdomen, status post panniculectomy. POSTOPERATIVE DIAGNOSIS: Wound dehiscence to the abdomen, status post panniculectomy. PROCEDURE: Complex repair of abdomen, 12.5 cm total length. ANESTHESIA: General LMA with local. INDICATIONS: Ms. Hoff is a 67-year-old female who has a very complicated panniculectomy due to previous scarring of the abdomen and they resulted postop wound dehiscence. Since that time, she has been doing dressing changes and this has been progressing nicely. The wound seemed to have stopped, it is small enough that we discussed excision and closure in the operating room. She would like to proceed. Risks were including, but not limited to, bleeding, infection, damage to underlying or overlying structures, possible need for future interventions, and possible scarring. She wishes to proceed surgery. PROCEDURE IN DETAIL: After informed consent was obtained and placed on the chart, the patient was brought to the operating theater and laid in supine position. After adequate general anesthesia was obtained, the area was prepped and draped and a time-out was completed to confirm side and site. The area was prepped and draped with Betadine cleansing solution and a 10 blade was used to dissect the ellipse around the open wound itself. Dissection was carried down into the subcutaneous tissue where a significant amount of fat necrosis was noted on the lower abdominal skin flap. This was excised and undermined to allow skin closure and once adequately excised, the tissue was exposed and meticulous hemostasis was obtained. Due to the fat necrosis and the lower abdominal skin flap elevation, a deep 2-0 PDS Stratafix suture was used for closure of the space and taken to the lower portion of the wound. This was completed in a running fashion. Once adequately closed here and reapproximated, attention was then paid to the dermis using a 3-0 Stratafix Monocryl suture for closure and then a 4-0 Stratafix Monocryl suture to the skin. The patient tolerated this well. The wound was dressed with Steri- Strips, Mastisol, and ABDs and tape. An abdominal binder was placed to the top of this. The patient tolerated the procedure well. All counts and needles were correct at the end of the case. FOLLOWUP INSTRUCTIONS: The patient will see us next week in clinic sooner if any problems, questions, or concerns. Prescription for pain control provided. VIKAS / DARNELL /[id number]
== END 2017-06-18 12:00 | disposition home or self-care (01) ==
LOC: MW.SDS 07:53
PROVIDERS: ATTEND Plastic Surgery
DX: T81.31XA Disruption of external operation (surgical) wound, not elsewhere classified, initial encounter (principal); M21.612 Bunion of left foot; F32.9 Major depressive disorder, single episode, unspecified; I10 Essential (primary) hypertension; L30.4 Erythema intertrigo; N62 Hypertrophy of breast; E66.01 Morbid (severe) obesity due to excess calories; Z68.41 Body mass index [BMI] 40.0-44.9, adult; Z98.890 Other specified postprocedural states; Z88.8 Allergy status to other drugs, medicaments and biological substances; Z88.7 Allergy status to serum and vaccine; Z79.899 Other long term (current) drug therapy
CPT/HCPCS: 13101; 13102; J0690; J2250; J2405; J3010; J7120; J2704

== ENCOUNTER 2017-08-27 08:14 | Day surgery (SDC) | payer BC, MEDICARE ==
[~2017-08-27 08:14] MED LIST changes: +Acetaminophen/HYDROcodone 325-5 MG Tab PO PRN; +Bupivacaine 0.25%/EPINEPHrine 1:200,000 10 ML SDV INJECT ONE; +Bupivacaine 25%/EPINEPHrine/PF 0 ML ONE; -Bupivacaine 25%/EPINEPHrine/PF 30 ML ONE; +Glycopyrrolate 0.2 MG/ML SDV ONE; +Lactated Ringers 1,000 ML IV SCH; +Lidocaine 2% 5 ML SDV ONE; +Midazolam 1 MG/ML 2 ML SDV ONE; +Neostigmine Methylsulfate 1 MG/ML 5 ML Syringe ONE; +Ondansetron 4 MG/2 ML SDV ONE; +Propofol 200 MG/20 ML SDV ONE; +Rocuronium 10 MG/ML 10 ML Syringe ONE; +ceFAZolin 2 GM in Premix Bag 1 BAG IV ONE; +fentaNYL 250 MCG/5 ML SDV ONE
--- NOTE | 2017-08-27 08:59 | PCM.PREANE ---
Preanesthetic Assessment - Anesthesia/Transfusion/Family Hx Anesthesia History: Prior Anesthesia Without Reaction Family History of Anesthesia Reaction: No Transfusion History: Prior Transfusion Without Reaction Intubation History: Unknown - Review of Systems General: No Symptoms Pulmonary: No Symptoms Cardiovascular: No Symptoms Gastrointestinal: No Symptoms Neurological: No Symptoms Other: Reports: None - Physical Assessment O2 Sat by Pulse Oximetry: 96 Respiratory Rate: 16 Vital Signs: Last Vital Signs Temp 36.5 C 08/27/17 08:54 Pulse 89 08/27/17 08:54 Resp 16 08/27/17 08:54 BP 145/65 H 08/27/17 08:54 Pulse Ox 96 08/27/17 08:54 Height: 1.5 m Weight: 88.451 kg ASA Class: 3 Mental Status: Alert & Oriented x3 Airway Class: Mallampati = 3 Dentition: Reports: Normal Dentition Thyro-Mental Finger Breadths: 2 Mouth Opening Finger Breadths: 3 ROM/Head Extension: Limited/Partial Lungs: Clear to Auscultation, Normal Respiratory Effort Cardiovascular: Regular Rate, Regular Rhythm, Tachycardia - Allergies Allergies/Adverse Reactions: Allergies Allergy/AdvReac Type Severity Reaction Status Date / Time gabapentin Allergy Swelling Verified 08/23/17 16:07 Pertussis Vaccines Allergy Cannot Verified 08/23/17 16:07 Remember - Blood Blood Available: No - Anesthesia Plan Pre-Op Medication Ordered: None - Acknowledgements Anesthesia Type Planned: General Anesthesia Pt an Appropriate Candidate for the Planned Anesthesia: Yes Alternatives and Risks of Anesthesia Discussed w Pt/Guardian: Yes Pt/Guardian Understands and Agrees with Anesthesia Plan: Yes PreAnesthesia Questionnaire HEENT History: Reports: Other (See Below) Other HEENT History: wears glasses Cardiovascular History: Reports: Hypertension Gastrointestinal History: Genitourinary History: Reports: None Musculoskeletal History: Reports: Arthritis, Back Pain, Chronic, Fracture, Fibromyalgia Other Musculoskeletal History: hx of fx foot Psychiatric History: Reports: Anxiety, Depression Endocrine/Metabolic History: Reports: Obesity/BMI 30+ (BMI 39.4) Hematologic History: Reports: Blood Transfusion(s) - Past Surgical History Head Surgeries/Procedures: Reports: None HEENT Surgical History: Reports: Oral Surgery, Tonsillectomy Other HEENT Surgeries/Procedures: wisdom teeth GI Surgical History: Reports: Appendectomy, Bariatric Procedure, Other (See Below) Other GI Surgeries/Procedures: abdominal panniculectomy, reversal of bariatric surgery Female Surgical History: Reports: Hysterectomy Musculoskeletal Surgical History: Reports: Knee Replacement, Shoulder Replacement Other Musculoskeletal Surgeries/Procedures:: right TKA, bilateral TSA, left bunionectomy- all have hardware - SUBSTANCE USE Smoking Status *Q: Never Smoker Recreational Drug Use History: No - HOME MEDS Home Medications: Home Meds FLUoxetine [PROzac] 20 mg PO DAILY 10/17/13 [History] Hydrochlorothiazide 25 mg PO DAILY 10/17/13 [History] amLODIPine Besylate [Amlodipine Besylate] 5 mg PO DAILY 10/17/13 [History] - CURRENT (IN HOUSE) MEDS Current Meds: Current Medications Hydrocodone Bitart/Acetaminophen ([place] 325-5 Mg) 1 tab PO Q4H PRN PRN Reason: Pain Lactated Ringer's (Ringers, Lactated) 1,000 mls @ 125 mls/hr IV ASDIRECTED ARNOLDO Discontinued Medications Bupivacaine HCl/Epinephrine Bitart (Marcaine 0.25%/Epinephrine 1:200,000) 10 ml INJECT ONETIME ONE Stop: 08/27/17 08:01 Fentanyl (Sublimaze) Confirm Administered Dose 250 mcg .ROUTE .STK-MED ONE Stop: 08/27/17 07:25 Glycopyrrolate (Robinul) Confirm Administered Dose 0.4 mg .ROUTE .STK-MED ONE Stop: 08/27/17 07:24 Cefazolin Sodium/Dextrose 2 gm (/ Premix) 50 mls @ 100 mls/hr IV ONETIME ONE Stop: 08/27/17 08:29 Bupivacaine HCl/Epinephrine Bitart (Sensorc Mpf 0.25%-Epi [id number]) Confirm Administered Dose 30 mls @ as directed .ROUTE .STK-MED ONE Stop: 08/27/17 07:25 Lidocaine (Xylocaine-Mpf 2%) Confirm Administered Dose 5 ml .ROUTE .STK-MED ONE Stop: 08/27/17 07:24 Midazolam HCl (Versed 1 Mg/Ml) Confirm Administered Dose 2 mg .ROUTE .STK-MED ONE Stop: 08/27/17 07:25 Neostigmine Methylsulfate (Neostigmine) Confirm Administered Dose 5 mg .ROUTE .STK-MED ONE Stop: 08/27/17 07:24 Ondansetron HCl (Zofran) Confirm Administered Dose 4 mg .ROUTE .STK-MED ONE Stop: 08/27/17 07:24 Propofol (Diprivan 20 Ml) Confirm Administered Dose 200 mg .ROUTE .STK-MED ONE Stop: 08/27/17 07:25 Rocuronium [place] (Zemuron) Confirm Administered Dose 100 mg .ROUTE .STK-MED ONE Stop: 08/27/17 07:24
[2017-08-27] MEDS ORDERED: Bupivacaine 25%/EPINEPHrine/PF 30 ML ONE (09:11)
[2017-08-27] MEDS ORDERED: ceFAZolin 1 GM Vial ONE (10:01)
[2017-08-27] MEDS ORDERED: Sodium Chloride 0.9% 20 ML ONE (10:01)
[2017-08-27] MEDS ORDERED: Dexamethasone 4 MG/ML 5 ML MDV ONE (10:19)
[2017-08-27] MEDS ORDERED: ePHEDrine 50 MG/ML SDV ONE (10:31)
[2017-08-27] MEDS ORDERED: fentaNYL 250 MCG/5 ML SDV ONE (10:51)
[2017-08-27] MEDS ORDERED: Phenylephrine/Normal Saline 100 MCG/ML 10 ML Syringe ONE (11:15)
[2017-08-27] MEDS ORDERED: fentaNYL 100 MCG/2 ML SDV IVPUSH PRN (13:38)
--- NOTE | 2017-08-27 14:44 | PCM.POSTAN ---
POST ANESTHESIA ASSESSMENT - MENTAL STATUS Mental Status: Alert, Oriented - RESPIRATORY Respiratory Status: Respiratory Rate WNL, Airway Patent, O2 Saturation Stable, Supplemental Oxygen (O2) Free Text/Narrative:: O2 via nasal canula - CARDIOVASCULAR CV Status: Pulse Rate WNL, Blood Pressure Stable - GASTROINTESTINAL GI Status: No Symptoms - PAIN Pain Score: 0 - POST OP HYDRATION Hydration Status: Adequate & Stable
[2017-08-27 15:36] VITALS: BP 132/76
--- NOTE | 2017-08-27 15:45 | PCM.OPNOTE ---
- General Post-Op/Procedure Note Date of Surgery/Procedure: 08/27/17 Operative Procedure(s): bilateral reduction mammoplasty Pre Op Diagnosis: bilateral macromastia Post-Op Diagnosis: Same Anesthesia Technique: General ET Tube, Local Primary Surgeon: Lea Grace Complications: None Condition: Good Free Text/Narrative:: Intake & Output 08/26/17 08/27/17 08/27/17 23:59 07:59 15:59 Intake Total 3700 Output Total 80 Balance 3620
--- NOTE | 2017-08-27 16:54 | OR ---
SURGEON: UBALDO FRAUSTO MD DATE OF PROCEDURE: 08/27/2017 PREOPERATIVE DIAGNOSIS: Bilateral macromastia. POSTOPERATIVE DIAGNOSIS: Bilateral macromastia. PROCEDURE: Bilateral reduction mammoplasty. BUTT WELDER: None. ANESTHESIA: General ET tube with local. INDICATIONS: Ms. Hoff is a 67-year-old female, seen today for bilateral macromastia. Risks and benefits of reduction mammoplasty for her symptomatic problem were discussed with her and she was in agreement to proceed. Prior authorizations were obtained with insurance. The risks were including, but not limited to, bleeding, infection, damage to underlying or overlying structures, possible need for future interventions, possible scarring. PROCEDURE IN DETAIL: After informed consent was obtained and placed on the chart, the patient was brought to the operating theater and laid in supine position. After adequate general anesthesia was obtained, the area was prepped and draped and a time-out was completed to confirm side and site. Attention was paid to the markings made in the preanesthesia area. An inferior pedicle was designed, 9 cm of base width and the Lock pattern reduction was reinforced in markings. Once adequately marked, attention was then paid to de-epithelialization of the inferior pedicle. Once this was completed and meticulous hemostasis was obtained, the superior skin flaps were developed 1 cm thick tapering to the chest wall medially and [address] to the chest wall laterally. The intervening breast tissue was removed between this and the inferior pedicle and the area was copiously irrigated. Meticulous hemostasis was obtained. Once adequate hemostasis and the symmetry procedure was completed on the opposite side, the skin was redraped, stapled in position. The patient was sat up into the supine position. After adequate symmetry was appreciated with around 700 g removed off the right, and 807 g removed off the left, official weights to be provided by pathology, adequate symmetry was appreciated and the new location for the nipple-areolar complex was designed. Once this was completed in the upright sitting position and measured to be appropriate, the patient was laid back into the supine position and the nipple-areolar complex was dissected out and brought through into its new position. The skin was then closed using deep 3-0 Monocryl Stratafix sutures in a dermal closure and then a running 4-0 Monocryl suture for the subcuticular. Once this was completed, the wounds were dressed with Mastisol, Steri-Strips, fluffs, and tape. A compression bra was placed for comfort. The patient tolerated this well. All counts needles were correct at the end of the case. FOLLOWUP INSTRUCTIONS: The patient will see us Wednesday in clinic sooner if any problems, questions, or concerns, and sent home with a prescription for Gautier. HEMATHEW / DARNELL /[id number]
== END 2017-08-27 16:08 | disposition home or self-care (01) ==
LOC: MW.SDS 08:14
PROVIDERS: ATTEND Plastic Surgery
DX: N62 Hypertrophy of breast (principal); M19.90 Unspecified osteoarthritis, unspecified site; G89.29 Other chronic pain; M54.5 Low back pain; M17.11 Unilateral primary osteoarthritis, right knee; I10 Essential (primary) hypertension; E66.01 Morbid (severe) obesity due to excess calories; Z68.41 Body mass index [BMI] 40.0-44.9, adult; Z79.899 Other long term (current) drug therapy; Z88.7 Allergy status to serum and vaccine; Z88.8 Allergy status to other drugs, medicaments and biological substances
CPT/HCPCS: 19318; J0690; J1100; J2250; J2405; J3010; J7120; J2704

== ENCOUNTER 2023-03-29 08:24 | Day surgery (SDC) | payer MEDICARE, OTHER ==
[~2023-03-29 08:24] MED LIST changes: -Acetaminophen/HYDROcodone 325-5 MG Tab PO PRN; -Bupivacaine 0.25%/EPINEPHrine 1:200,000 10 ML SDV INJECT ONE; -Bupivacaine 25%/EPINEPHrine/PF 0 ML ONE; -Glycopyrrolate 0.2 MG/ML SDV ONE; -Lidocaine 2% 5 ML SDV ONE; -Midazolam 1 MG/ML 2 ML SDV ONE; -Neostigmine Methylsulfate 1 MG/ML 5 ML Syringe ONE; -Ondansetron 4 MG/2 ML SDV ONE; -Propofol 200 MG/20 ML SDV ONE; -Rocuronium 10 MG/ML 10 ML Syringe ONE; -ceFAZolin 2 GM in Premix Bag 1 BAG IV ONE; -fentaNYL 250 MCG/5 ML SDV ONE
[2023-03-29] MEDS ORDERED: Acetaminophen/HYDROcodone 325-5 MG Tab PO PRN (09:09)
[2023-03-29] MEDS ORDERED: Lactated Ringers 1,000 ML IV SCH ×2 (09:15→10:30)
[2023-03-29] MEDS ORDERED: propofoL 50 ML ONE (09:51)
[2023-03-29] MEDS ORDERED: Propofol 200 MG/20 ML SDV ONE ×2 (10:02→10:12)
[2023-03-29 10:58] VITALS: BP 98/48; PULSE 72
== END 2023-03-29 11:05 | disposition home or self-care (01) ==
LOC: MW.SDS 08:24
PROVIDERS: ATTEND Surgery
DX: K29.50 Unspecified chronic gastritis without bleeding (principal); K31.A0 Gastric intestinal metaplasia, unspecified; K20.90 Esophagitis, unspecified without bleeding; K31.7 Polyp of stomach and duodenum; I10 Essential (primary) hypertension; F32.A Depression, unspecified; D50.9 Iron deficiency anemia, unspecified; Z98.84 Bariatric surgery status; Z79.899 Other long term (current) drug therapy; Z88.8 Allergy status to other drugs, medicaments and biological substances
CPT/HCPCS: 43239; 45378; J2704; J7120; 00813